=== PATIENT | female | born 1950 | race Caucasian/White ===

== ENCOUNTER 2023-08-09 09:35 | Outpatient (AMB) | payer OTHER, SELFPAY ==
--- NOTE | 2023-08-09 09:54 | A.OFFVIS_ITS ---
Intake Intake Visit Reasons: [employer]-B/L knee pain-f/u Intake Note: Ms. Del Cid presents with mild intermittent discomfort in both of her knees after undergoing bilateral total knee replacement surgeries. She denies any fevers or chills. She does have intermittent low back pain. She states that the back pain is mostly relieved when she gets a massage. She does not take any medicines for discomfort. She denies any locking or giving way. Allergies iron Allergy (Intermediate, Verified 08/09/23 09:56) Unknown Penicillins Allergy (Intermediate, Verified 08/09/23 09:56) Unknown Sulfa (Sulfonamide Antibiotics) Allergy (Intermediate, Verified 08/09/23 09:56) Itching Medication List - Last Reconciled 08/09/23 by Lucian Bhakta MD gabapentin 300 mg PO BEDTIME irbesartan-hydrochlorothiazide 300-12.5 mg 1 tab PO DAILY magnesium oxide 400 mg PO DAILY trimethoprim 100 mg PO DAILY PFSH Surgical History (Updated 08/09/23 @ 09:57 by Marian Grant MA) Hx of hysterectomy Social History (Updated 08/09/23 @ 09:57 by Marian Grant MA) Household Members: Children Housing: Apartment Alcohol intake: never Patient Tobacco Use Status: Never used Tobacco Current occupational status: disabled Physical Exam Const Other: Well-nourished well-developed very friendly female awake alert and oriented x3 in no acute distress Extrem Other: Bilateral lower extremity examination shows good capillary refill, no skin lesions noted, normal sensation light touch Bilateral knee examination shows that the surgical incisions are well healed, no erythema, full active extension and flexion to 120 degrees, her patellae track well Results Reviewed Results Reviewed: X-rays of the patient's bilateral knees taken today show total knee arthroplasties in good position with no signs of loosening, no acute bony abnormalities Assessment & Plan Assessment & Plan (1) Right knee pain: Code(s): M25.561 - Pain in right knee (2) Left knee pain: Code(s): M25.562 - Pain in left knee Plan Ms. Del Cid continues to do well after undergoing bilateral total knee replacement surgeries. She will continue with her home exercise program. She does know to take antibiotics before any dental work. She does have intermittent low back pain most likely due to degenerative disc disease. At this point the patient's low back pain is tolerable to her. She will continue getting massages as needed. She will contact me prior to her annual follow-up appointment should her symptoms worsen in any way. Feel free to call me at any time should questions regarding her orthopedic management arise. I spent 22 minutes in reviewing the patient's records and imaging studies, seeing the patient and documenting in the medical record. Orders: Orders XR knee LT 3V Today M25.562 - Pain in left knee XR knee RT 3V Today M25.561 - Pain in right knee Coding Level of Care Code Est Pt Level 2 (20944) Diagnoses Right knee pain M25.561 Left knee pain M25.562
== END 2023-08-09 10:20 | disposition home or self-care (01) ==
PROVIDERS: PCP Internal Medicine; Visit Provider Orthopaedic Surgery
DX: M25.561 Pain in right knee (principal); M25.562 Pain in left knee
CPT/HCPCS: 99212

== ENCOUNTER 2023-08-09 12:52 | Outpatient (REF) | payer OTHER, SELFPAY ==
--- NOTE | ~2023-08-09 | XR_ITS ---
EXAMINATION: XR KNEE, RIGHT XR KNEE, LEFT CLINICAL INFORMATION: Right knee pain. Left knee pain. COMPARISON: None available. TECHNIQUE: Three views of each knee. FINDINGS: RIGHT KNEE: Prosthetic components of the right total knee arthroplasty are appropriately aligned without periprosthetic fracture or abnormal lucency. Small knee joint effusion. Mild anterior soft tissue swelling. LEFT KNEE: Prosthetic components of the left total knee arthroplasty are appropriately aligned without periprosthetic fracture or abnormal lucency. Trace joint effusion. XR/XR knee LT 3V IMPRESSION: 1. Appropriate alignment of the bilateral total knee arthroplasties without evidence of complications. 2. Small right knee joint effusion and mild anterior soft tissue swelling.
--- NOTE | ~2023-08-09 | XR_ITS ---
EXAMINATION: XR KNEE, RIGHT XR KNEE, LEFT CLINICAL INFORMATION: Right knee pain. Left knee pain. COMPARISON: None available. TECHNIQUE: Three views of each knee. FINDINGS: RIGHT KNEE: Prosthetic components of the right total knee arthroplasty are appropriately aligned without periprosthetic fracture or abnormal lucency. Small knee joint effusion. Mild anterior soft tissue swelling. LEFT KNEE: Prosthetic components of the left total knee arthroplasty are appropriately aligned without periprosthetic fracture or abnormal lucency. Trace joint effusion. XR/XR knee RT 3V IMPRESSION: 1. Appropriate alignment of the bilateral total knee arthroplasties without evidence of complications. 2. Small right knee joint effusion and mild anterior soft tissue swelling.
== END 2023-08-09 12:53 | disposition home or self-care (01) ==
LOC: HO.HOSX 12:52
PROVIDERS: Visit Provider Orthopaedic Surgery
DX: M25.562 Pain in left knee (principal); M25.561 Pain in right knee; M54.50 Low back pain, unspecified; Z96.653 Presence of artificial knee joint, bilateral; Z79.899 Other long term (current) drug therapy
CPT/HCPCS: 73562

== ENCOUNTER 2024-01-16 08:34 | Outpatient (AMB) | payer SELFPAY ==
--- NOTE | 2024-01-16 08:42 | A.OFFVIS_ITS ---
Vital Signs 01/16/24 08:44 Height 5 ft 1 in Intake Visit Reasons: ov-B/L knee pain Intake Note: Shikha is a 73 year old female who presents with complaints of mild intermittent discomfort in both of her knees after undergoing bilateral total knee replacement surgeries. The patient's denies any fevers or chills. She does have intermittent low back pain. The patient states that her back pain is tolerable to her at this time. She continues with her home exercise program. Allergies iron Allergy (Intermediate, Verified 01/16/24 08:49) Unknown Penicillins Allergy (Intermediate, Verified 01/16/24 08:49) Unknown Sulfa (Sulfonamide Antibiotics) Allergy (Intermediate, Verified 01/16/24 08:49) Itching Medication List - Last Reconciled 01/16/24 by Lucian Bhakta MD gabapentin 300 mg PO BEDTIME irbesartan-hydrochlorothiazide 300-12.5 mg 1 tab PO DAILY magnesium oxide 400 mg PO DAILY trimethoprim 100 mg PO DAILY PFSH Surgical History (Updated 01/16/24 @ 08:54 by Pinky rL [facility] [address]) Hx of right knee surgery (~09/29/22) Hx of left knee surgery (~06/2022) Hx of hysterectomy Social History (Updated 08/09/23 @ 09:57 by Marian Grant [facility]) Household Members: Children Housing: Apartment Alcohol intake: never Patient Tobacco Use Status: Never used Tobacco Current occupational status: disabled Physical Exam Const Other: Well-nourished well-developed very friendly female awake alert and oriented x3 in no acute distress Extrem Other: Bilateral lower extremity examination shows good capillary refill, no skin lesions noted, normal sensation light touch Bilateral knee examination shows that the surgical incisions are well healed, no erythema, full active extension and flexion to 120 degrees, her patellae track well Assessment & Plan Assessment & Plan (1) Right knee pain: Code(s): M25.561 - Pain in right knee Category: Medical (2) Left knee pain: Code(s): M25.562 - Pain in left knee Category: Medical Plan Ms. Farfan continues to do well after undergoing bilateral total knee replacement surgeries. She will continue with her home exercise program. She does know to take antibiotics before any dental work. The patient does have chronic low back pain. At this point her back pain is tolerable to her. She does not wish to be evaluated by a back specialist. She will contact me prior to her annual follow-up appointment should any questions or concerns arise. Feel free to call me at any time should questions regarding her orthopedic management arise. I spent 21 minutes in reviewing the patient's records and imaging studies, seeing the patient and documenting in the medical record. Medications: New clindamycin HCl Take two caps (600 mg) one hour before any dental work 600 mg (2 x 300 mg) PO ONCE 10 caps 3RF Coding Level of Care Code Est Pt Level 2 (41480) Diagnoses Right knee pain M25.561 Left knee pain M25.562
== END 2024-01-16 09:12 | disposition home or self-care (01) ==
PROVIDERS: PCP Internal Medicine; Visit Provider Orthopaedic Surgery
DX: Z47.89 Encounter for other orthopedic aftercare (principal); Z96.653 Presence of artificial knee joint, bilateral
CPT/HCPCS: 99213

== ENCOUNTER → 2024-01-16 08:34 | Outpatient (BNVA) | payer OTHER, SELFPAY | PROVIDERS: PCP Internal Medicine; Visit Provider Orthopaedic Surgery ==

== ENCOUNTER 2024-05-08 12:58 | Outpatient (REF) | payer OTHER, SELFPAY ==
--- NOTE | ~2024-05-08 | XR_ITS ---
EXAMINATION: XR KNEE, RIGHT CLINICAL INFORMATION: Pain in right knee COMPARISON: 08/09/2023 TECHNIQUE: Three views of the right knee. FINDINGS: Prosthetic components of the right total knee arthroplasty with patellar button are appropriately aligned without periprosthetic fracture or abnormal lucency. Small joint effusion. XR/XR knee RT 3V IMPRESSION: Appropriate alignment of the right total knee arthroplasty without evidence of hardware complication. Electronically signed by: Ana Roldan MD 05/29/2024 02:22 PM EDT
--- NOTE | ~2024-05-08 | XR_ITS ---
EXAMINATION: XR KNEE, LEFT CLINICAL INFORMATION: Pain in left knee COMPARISON: Left knee 08/09/2023 TECHNIQUE: 3 views of the left knee. FINDINGS: Prosthetic components of the left total knee arthroplasty are appropriately aligned without periprosthetic fracture or abnormal lucency. Trace joint effusion. XR/XR knee LT 3V IMPRESSION: Appropriate alignment of the left total knee arthroplasty without evidence of complications. Electronically signed by: Ana Roldan MD 05/29/2024 02:20 PM EDT
== END 2024-05-08 12:59 | disposition home or self-care (01) ==
LOC: HO.HOSX 12:58
PROVIDERS: PCP Internal Medicine; Visit Provider Orthopaedic Surgery
DX: M25.562 Pain in left knee (principal); M25.561 Pain in right knee
CPT/HCPCS: 73562

== ENCOUNTER 2024-05-08 13:28 | Outpatient (AMB) | payer OTHER, SELFPAY ==
--- NOTE | 2024-05-08 13:32 | MHC.OFFVIS ---
Intake Visit Reasons: left shoulder pain and weakness Intake Note: Shikha is a 73 year old female who presents with complaints of progressively worsening left shoulder pain and weakness. She describes her pain as sharp in nature. The patient did injure her shoulder approximately 1 year ago while lifting a heavy object. Since that time her symptoms have gotten worse in spite of continued non operative treatments. She has tried Tylenol and anti-inflammatory medicines which gave her minimal relief. She has also done physical therapy exercises which aggravated her pain. She has failed the last 6 weeks of conservative treatment. The patient has undergone bilateral total knee replacement surgeries in the past. She reports mild intermittent discomfort in her knees. She denies any fevers or chills. Allergies iron Allergy (Intermediate, Verified 05/08/24 13:45) Unknown Penicillins Allergy (Intermediate, Verified 05/08/24 13:45) Unknown Sulfa (Sulfonamide Antibiotics) Allergy (Intermediate, Verified 05/08/24 13:45) Itching Medication List - Last Reconciled 05/08/24 by Lucian Bhakta MD clindamycin HCl 600 mg (2 x 300 mg) PO ONCE gabapentin 300 mg PO BEDTIME irbesartan-hydrochlorothiazide 300-12.5 mg 1 tab PO DAILY magnesium oxide 400 mg PO DAILY trimethoprim 100 mg PO DAILY PFSH Surgical History (Updated 01/16/24 @ 08:54 by Pinky Lr [facility]) Hx of right knee surgery (~09/29/22) Hx of left knee surgery (~06/2022) Hx of hysterectomy Social History (Updated 08/09/23 @ 09:57 by Marian Grant CMA) Household Members: Children Housing: Apartment Alcohol intake: never Patient Tobacco Use Status: Never used Tobacco Current occupational status: disabled Physical Exam Const Other: Well-nourished well-developed very friendly female awake alert and oriented x3 in no acute distress Extrem Other: Bilateral upper extremity examination shows good capillary refill, no skin lesions noted, normal sensation light touch Left shoulder examination shows slightly decreased range of motion when compared to her right shoulder, 4+ out of 5 strength with supraspinatus testing, positive impingement signs, tenderness over her acromioclavicular joint, no instability Assessment & Plan Assessment & Plan (1) Left shoulder pain: Code(s): M25.512 - Pain in left shoulder Category: Medical Plan Ms. Farfan presents with progressively worsening left shoulder pain and weakness due to impingement syndrome and possible rotator cuff tearing. Thus, I will send the patient for an MRI of her left shoulder for further evaluation. I will see her back once the MRI is completed to discuss the findings and treatment options. She will continue with her home stretching program in the meantime to prevent stiffness. Feel free to call me at any time should questions regarding her orthopedic management arise. I spent 22 minutes in reviewing the patient's records and imaging studies, seeing the patient and documenting in the medical record. Orders: Orders XR knee LT 3V 05/08/24 M25.562 - Pain in left knee XR knee RT 3V 05/08/24 M25.561 - Pain in right knee XR knee LT 3V 05/08/24 M25.562 - Pain in left knee XR knee RT 3V 05/08/24 M25.561 - Pain in right knee MR shoulder LT wo con 05/08/24 M25.512 - Pain in left shoulder Medications: New diclofenac sodium ER 100 mg PO DAILY PRN 30 tabs 2RF pain Coding Level of Care Code Est Pt Level 3 (46967) Complex EM visit Add On G2211 Diagnoses Left shoulder pain M25.512
== END 2024-05-08 13:58 | disposition home or self-care (01) ==
PROVIDERS: PCP Internal Medicine; Visit Provider Orthopaedic Surgery
DX: M75.42 Impingement syndrome of left shoulder (principal)
CPT/HCPCS: 99213

== ENCOUNTER 2024-06-24 12:57 | Outpatient (AMB) | payer OTHER, SELFPAY ==
--- NOTE | 2024-06-24 13:09 | A.OFFVIS_ITS ---
Vital Signs 06/24/24 13:14 Height 5 ft 1 in Weight 182 lb BMI 34.4 Intake Visit Reasons: Left shoulder pain and weakness Intake Note: Shikha is a 73 year old female who presents for a follow up of her progressively worsening left shoulder pain and weakness. The patient states that her left shoulder pain and weakness have gotten worse over the last year. I did see her in the office approximately 6 weeks ago. Since that time her symptoms have gotten worse. She reports weakness when lifting her right hand above shoulder height. She has had cortisone injections given into her right shoulder by Dr. Meza. She got minimal relief from those injections. She has also done physical therapy and a home exercise program which aggravated her pain. She has tried Tylenol and anti-inflammatory medicines which gave her minimal relief. The patient has failed the last 6 weeks of conservative treatment. She also reports intermittent low back pain which radiates into the posterior aspect of her right leg. Allergies iron Allergy (Intermediate, Verified 06/24/24 13:14) Unknown Penicillins Allergy (Intermediate, Verified 06/24/24 13:14) Unknown Sulfa (Sulfonamide Antibiotics) Allergy (Intermediate, Verified 06/24/24 13:14) Itching Medication List - Last Reconciled 06/24/24 by Lucian Bhakta MD clindamycin HCl 600 mg (2 x 300 mg) PO ONCE gabapentin 300 mg PO BEDTIME irbesartan-hydrochlorothiazide 300-12.5 mg 1 tab PO DAILY magnesium oxide 400 mg PO DAILY trimethoprim 100 mg PO DAILY PFSH Surgical History (Updated 01/16/24 @ 08:54 by Pinky Lr CMA) Hx of right knee surgery (~09/29/22) Hx of left knee surgery (~06/2022) Hx of hysterectomy Social History (Updated 08/09/23 @ 09:57 by Marian Grant CMA) Household Members: Children Housing: Apartment Alcohol intake: never Patient Tobacco Use Status: Never used Tobacco Current occupational status: disabled Physical Exam Vital Signs: BMI result Body Mass Index 34.4 Const Other: Well-nourished well-developed very friendly female awake alert and oriented x3 in no acute distress Extrem Other: Bilateral upper extremity examination shows good capillary refill, no skin lesions noted, normal sensation light touch Left shoulder examination shows decreased active range of motion but full passive range of motion when compared to her right shoulder, 4/5 strength with supraspinatus testing, positive impingement signs, tenderness over her acromioclavicular joint, no instability Results Reviewed Results Reviewed: X-rays of the patient's left shoulder taken previously show severe acromioclavicular joint narrowing, a type 2 acromion, no acute bony abnormalities Assessment & Plan Assessment & Plan (1) Rotator cuff insufficiency of left shoulder: Code(s): M25.312 - Other instability, left shoulder Category: Medical Plan Ms. Farfan presents with progressively worsening left shoulder pain and weakness due to impingement syndrome and most likely a full-thickness rotator cuff tear. The patient's symptoms have gotten worse since her previous visit with me. She has failed the last 6 weeks of conservative treatment. Thus, I will send her for an MRI of her left shoulder for further evaluation. If she does have a full-thickness rotator cuff tear I will recommend surgical repair to optimize her future functional level. She also has low back pain which radiates into her right leg possibly due to lumbar stenosis or a disc herniation. Thus, I will arrange for her to have an evaluation in our pain management department here at [facility]. The patient will contact me prior to that appointment should her symptoms worsen in any way. I will see her back after her left shoulder MRI is completed to discuss the findings and treatment options. Feel free to call me at any time should questions regarding her orthopedic management arise. I spent 20 minutes in reviewing the patient's records and imaging studies, seeing the patient and documenting in the medical record. Orders: Orders MR shoulder LT wo con Today M25.312 - Other instability, left shoulder Referrals Pain Management Referral M54.50 - Low back pain, unspecified Coding Level of Care Code Est Pt Level 3 (30248) Complex EM visit Add On G2211 Diagnoses Rotator cuff insufficiency of left shoulder M25.312
[2024-06-24 13:14] VITALS: BMI 34.4
== END 2024-06-24 13:29 | disposition home or self-care (01) ==
LOC: HO.HOS 12:57
PROVIDERS: PCP Internal Medicine; Visit Provider Orthopaedic Surgery
DX: M25.312 Other instability, left shoulder (principal)
CPT/HCPCS: 99213

== ENCOUNTER → 2024-06-24 12:57 | Outpatient (BNVA) | payer OTHER, SELFPAY | PROVIDERS: PCP Internal Medicine; Visit Provider Orthopaedic Surgery ==

== ENCOUNTER 2024-07-16 13:16 | Outpatient (AMB) | payer OTHER, SELFPAY ==
--- NOTE | 2024-07-16 13:23 | MHC.OFFVIS ---
Vital Signs 07/16/24 13:24 Height 5 ft 1 in Weight 184 lb BMI 34.8 BP 137/66 Blood Pressure Location Lt brachial Position Sitting Respiration 16 Pulse 89 Pulse Source Pulse Oximeter Pulse Oximetry (%) 93 Oxygen Delivery Method Room Air Intake Visit Reasons: Low back pain Allergies iron Allergy (Intermediate, Verified 07/16/24 13:26) Unknown Penicillins Allergy (Intermediate, Verified 07/16/24 13:26) Unknown Sulfa (Sulfonamide Antibiotics) Allergy (Intermediate, Verified 07/16/24 13:26) Itching Medication List - Last Reconciled 07/16/24 by Amaris Duvall LPN clindamycin HCl 600 mg (2 x 300 mg) PO ONCE gabapentin 300 mg PO BEDTIME levocetirizine 5 mg PO DAILY losartan 50 mg PO DAILY magnesium oxide 400 mg PO DAILY meloxicam 7.5 mg PO DAILY trimethoprim 100 mg PO DAILY HPI Comments Details: Shikha is very pleasant 73 years old female who presents in my office with complains on axial back pain with minimal radiation to the right left hip and left thigh. She reports that this problem started many years ago. She reports that sitting hurts the most, itching back backwards aggravate the pain as well. Walking improves the pain. She can sleep normally, she can do activities of daily living, she can not take care of herself, she can function normally. She is unemployed individual, she never worked. She reports weather changes and called aggravate her pain. She reports pain is very severe during the daytime. In terms of tissue damage he describes her pain as stabbing and lancinating. She tried to take gabapentin and meloxicam for her pain. She reports that it does not help. She never had any images of her lumbar spine. She had massage therapy which helped her initially very good but later on faded ineffectiveness. She never had physical therapy or chiropractic manipulations. She never had any injections. Her past medical history significant for hypertension COPD and arthritis, she had 2 surgeries on her knees total knee replacement in 07/16/2022 and 10/16/2022. Long time ago 1987 she had hysterectomy. She denies smoking cigarettes drinking alcohol she drinks soda infrequently and she denies recreational drugs. [facility] Surgical History (Updated 01/16/24 @ 08:54 by Pinky Lr CMA) Hx of right knee surgery (~02/03/23) Hx of left knee surgery (~06/2022) Hx of hysterectomy Social History (Updated 08/09/23 @ 09:57 by Marian Grant [facility]) Household Members: Children Housing: Apartment Alcohol intake: never Patient Tobacco Use Status: Never used Tobacco Current occupational status: disabled Review of Systems ENT Reports Normal hearing present Card Reports no additional complaints Resp Reports no additional complaints GI Reports no additional complaints Reports no additional complaints Musc Reports as per HPI Neuro Reports no additional complaints, Reports Normal hearing present, Denies Abnormal speech present, Denies confusion and Denies Sensory deficit (Neuro) Psych Denies confusion Endo Reports no additional complaints Physical Exam Vital Signs: Last Vital Signs Pulse 89 07/16/24 13:24 Resp 16 07/16/24 13:24 BP 137/66 07/16/24 13:24 Pulse Ox 93 07/16/24 13:24 Oxygen Delivery Method Room Air 07/16/24 13:24 BMI result Body Mass Index 34.8 Const General: no acute distress; No confusion Orientation/consciousness: patient oriented x3 and No confusion Eyes General: appearance normal, both eyes and all related structures Pupils: Equal, round and reactive pupils present EOM: EOMs intact bilaterally Neck Neck: Yes full ROM Chest Chest palpation & inspection: normal inspection of the chest Resp Effort & Inspection: normal respiratory effort, able to speak in complete sentences, normal respiratory pattern, no audible wheezes and no cough Cardio Jugular venous distension: no JVD GI Inspection: Yes normal to inspection Back/Spine/Pelvis Other: Able to stand on bilateral tiptoes in bilateral heels without any difficulty. Elbow to flex herself forward and backwards reports backwards aggravate her pain. Prolonged sitting aggravates her pain. Valsalva maneuver is negative for pain increase. Finesse test is negative bilaterally. SLR is negative bilaterally. Loading test is positive more on the left and less on the right. Neuro General: patient oriented x3, gait normal and No confusion Cranial nerves: Yes CN's II-XII intact bilaterally, Yes Equal, round and reactive pupils present, Yes Normal hearing present and Yes Ability to bilaterally elevate shoulders present Speech: No Abnormal speech present Gait exam (Neuro): Normal gait present Motor exam (neuro): 5/5 motor strength present throughout Sensory Exam: No Sensory deficit (Neuro) Extrem General: No pedal edema Psych Speech and movement: Normal speech and movement present Affect: normal affect Attitude: cooperative Thought process: Normal thought process present Thought content: Normal thought content present Insight: Good insight present (Psych) Judgement: Good judgement present (Psych) Assessment & Plan Assessment & Plan (1) Spondylosis of lumbar region without myelopathy or radiculopathy: Code(s): M47.816 - Spondylosis without myelopathy or radiculopathy, lumbar region Category: Medical Plan This patient never had physical therapy for her lumbar spine she never had any images of the lumbar spine. I will schedule her for x-ray of the lumbar spine, I will send her for physical therapy. It will be open order for physical therapy to attend the physical therapy close to her home. Role of home exercise program was explained to the patient. She can continue her meloxicam and gabapentin to help her pain. She reports that she takes with good effect OTC Salonpas lidocaine patches. She will continue those patches as well. I will see her in 5 weeks from now. If physical therapy will not be working we will schedule her for diagnostic medial branch block L3, L4, dorsal ramus L5 bilateral. Orders: Orders PT Evaluation and Treatment Today M47.816 - Spondylosis without myelopathy or radiculopathy, lumbar region XR lumbar spine 4V min Today M47.816 - Spondylosis without myelopathy or radiculopathy, lumbar region Coding Level of Care Code New Pt Level 3 (73240) Diagnoses Spondylosis of lumbar region without myelopathy or radiculopathy M47.816
[2024-07-16 13:24] VITALS: BP 137/66; PULSE 89; RESP 16; O2SAT 93; BMI 34.8
== END 2024-07-16 13:50 | disposition home or self-care (01) ==
PROVIDERS: PCP Internal Medicine; Visit Provider Anesthesiology
DX: M47.816 Spondylosis without myelopathy or radiculopathy, lumbar region (principal)
CPT/HCPCS: 99203

== ENCOUNTER 2024-07-16 13:16 | Outpatient (REF) | payer OTHER, SELFPAY ==
--- NOTE | ~2024-07-16 | XR_ITS ---
EXAMINATION: XR LUMBAR SPINE CLINICAL INFORMATION: Spondylosis. COMPARISON: None available. TECHNIQUE: AP, lateral, bilateral oblique, and coned-down views of the lumbar spine. FINDINGS: Normal vertebral body alignment. The lumbar lordosis is maintained. No acute fracture or subluxation. No loss of vertebral body height. Multilevel loss of intervertebral disc height with degenerative endplate changes. Lower lumbar spine facet arthropathy. No concerning lytic or blastic osseous lesion. XR/XR lumbar spine 4V min IMPRESSION: Moderate multilevel degenerative disc disease with lower lumbar spine facet arthropathy. Electronically signed by: Willy Willett MD 07/16/2024 04:05 PM DINO
== END 2024-07-16 13:17 | disposition home or self-care (01) ==
LOC: HO.XRAY 13:16
PROVIDERS: PCP Internal Medicine; Visit Provider Anesthesiology
DX: M47.816 Spondylosis without myelopathy or radiculopathy, lumbar region (principal)
CPT/HCPCS: 72110

== ENCOUNTER 2024-07-23 11:52 | Outpatient (REF) | payer OTHER, SELFPAY ==
[2024-07-23 12:12] LABS: MANUAL DIFF FLAG NO
[2024-07-23 12:20] LABS: Basophils Percent Auto 0.5 % (0-2); Eosinophils Absolute Auto 0.1 X10*3/uL (0.0-0.4); Eosinophils Percent Auto 1.4 % (0-4); Hematocrit 40.9 % (37.0-47.0); Hemoglobin 13.9 g/dl (12.0-16.0); Imm Gran Abs Auto 0.02 X10*3/uL (0.00-0.03); Imm Gran Pct Auto 0.3 % (0.0-0.4); Lymphocytes Absolute Auto 2.6 X10*3/uL (1.2-4.9); Lymphocytes Percent Auto 34.2 % (20-40); Mean Corpuscular Hemoglobin 32.4 pg (27.0-33.0); Mean Corpuscular Volume 95.3 fL (80.0-98.0); Mean Platelet Volume 10.1 fL (9.4-12.3); Monocytes Percent Auto 12.9 % (2-11); Neutrophils Absolute Auto 3.9 x10*3/uL (2.0-8.3); Neutrophils Percent Auto 50.7 % (45-73); Platelet Count 332 X10*3/uL (160-400); Red Blood Count 4.29 X10*6/uL (4.20-5.50); White Blood Count 7.7 X10*3/uL (4.8-10.8)
[2024-07-23 12:57] LABS: Anion Gap 16 (12-20); Blood Urea Nitrogen 12 mg/dL (9-16); Carbon Dioxide 28 mmol/L (22-29); Chloride 102 mmol/L (96-108); Estimated Glomerular Filt Rate > 60; Glucose Random 97 mg/dL (60-115); Potassium 4.3 mmol/L (3.3-5.1); Sodium 142 mmol/L (135-145)
[2024-07-23 13:07] LABS: TSH reflex Free T4 1.34 uIU/mL (0.32-4.0)
[2024-07-23 13:41] LABS: Vitamin B12 760 pg/mL (200-900)
== END 2024-07-23 11:53 | disposition home or self-care (01) ==
LOC: HO.LAB 11:52
PROVIDERS: PCP Internal Medicine; Visit Provider Psychiatry & Neurology Neurology
DX: G31.84 Mild cognitive impairment of uncertain or unknown etiology (principal)
CPT/HCPCS: 36415; 80048; 82607; 82746; 84443; 85025

== ENCOUNTER → 2024-08-31 08:34 | Outpatient (BNV) | payer OTHER, SELFPAY | PROVIDERS: PCP Internal Medicine; Visit Provider General Practice | DX: M25.312 Other instability, left shoulder (principal) | CPT/HCPCS: 73221 ==

== ENCOUNTER 2024-08-31 08:42 | Outpatient (REF) | payer OTHER, SELFPAY ==
--- NOTE | ~2024-08-31 | MR_ITS ---
CLINICAL HISTORY: M25.312 - Other instability, left shoulder MR left shoulder without gadolinium Comparison: None Findings: Osseous alignment is satisfactory. No fracture identified. Severe osteoarthritic changes are present within the glenohumeral joint with joint space narrowing and subchondral cyst formation. Joint fluid volume is satisfactory. There is slightly increased fluid in the subacromial subdeltoid bursa. Full-thickness partial width tear of the anterior distal supraspinatus is present with atrophic change in the anterior supraspinatus muscle belly. Infraspinatus and teres minor are grossly within normal limits. Tendinotic thickening of subscapularis is present. The visualized portions of the long head of biceps are unremarkable Labrum is not well evaluated on this exam. Moderate osteoarthritic changes are present. Regional soft tissues are grossly within normal limits. IMPRESSION: 1. Severe glenohumeral osteoarthritic change with joint space narrowing and subchondral sclerosis. 2. Chronic appearing full-thickness partial width tear of the supraspinatus tendon. This document has been electronically signed by: Michael Tavera MD, PHD on 09/02/2024 05:27:33
--- OUTSIDE RECORDS SUMMARY | 2024-08-31 08:44 | XMS_ITS ---
Author Name [facility] Organization Unknown Results Test Name/Text Value Interpretation Date Range Source Clarity Ur Refract.auto CLEAR Normal [facility] Prot Ur Ql Strip.auto NEGATIVE Normal - [facility] Glucose Ur Ql Strip.auto NEGATIVE Normal - [facility] Nitrite Ur Ql Strip.auto NEGATIVE Normal - [facility] Hgb Ur Ql Strip.auto MODERATE Abnormal - [facility] Ketones Ur Ql Strip.auto NEGATIVE Normal - [facility] Leukocyte esterase Ur Ql Strip.auto NEGATIVE Normal - [facility] Sp Gr Ur Strip.auto 1.02 Normal 1.005 - 1.03 [facility] pH Ur Strip.auto 6 Normal 4.5 - 8 [facility] SQUAMOUS NO./AREA URNS LPF 18/LPF Above high normal [id number] 0 - 5 [facility] RBC number/area UrnS Auto 16/HPF Above high normal 0 - 3 [facility] WBC number/area UrnS Auto 2/HPF Normal 0 - 5 [facility] SPECIMEN SOURCE XXX URINE CLEAN CATCH Normal [id number] [facility] Troponin I SerPl HS-mCnc 3ng/L Normal 0 - 14 [facility] CREAT SERPL MCNC 0.9mg/dL Normal 0.5 - 1 [facility] CALCIUM SERPL MCNC 10.1mg/dL Normal [id number] 8.4 - 10 .2 [facility] SODIUM SERPL SCNC 134mmol/L Below low normal 13 5 - 145 [facility] ANION GAP SERPL SCNC 8mmol/L Normal 5 - 14 [facility] Glomerular filtration rate/1.73 sq M. predicted 68 Normal 60 - [facility] HCO3 SER SCNC 30mmol/L Normal 24 - 32 [facility] GLUCOSE SERPL MCNC 94mg/dL Normal [id number] 70 - 199 [facility] BUN SERPL MCNC 16mg/dL Normal [id number] 7 - 17 [facility] CHLORIDE SERPL SCNC 96mmol/L Below low normal [id number] 98 - 107 [facility] POTASSIUM SERPL SCNC 3.6mmol/L Normal [id number] 3.5 - 5.1 [facility] PLATELET NO. BLD AUTO 412K/uL Normal [id number] 150 - 450 [facility] RBC NO. BLD AUTO 4.33M/uL Normal [id number] 4.2 - 5.4 [facility] NUCLEATED RBC 0% Normal [id number] 0 - 1 [facility] LYMPHOCYTES NO. BLD AUTO 2K/uL Normal [id number] 1 - 3.2 [facility] EOSINOPHIL NO. BLD AUTO 0.1K/uL Normal [id number] 0 - 0.5 [facility] MCH RBC QN AUTO 32.3pg Normal [id number] 25 - 33 [facility] MCHC RBC AUTO MCNC 33.9g/dL Normal [id number] 32 - 36 [facility] MONOCYTES NFR BLD AUTO 11.7% Normal [id number] 2 - 12 [facility] IMMATURE GRANULOCYTE, ABSOLUTE 0.02k/uL Normal [id number] - 0.1 [facility] LYMPHOCYTES NFR BLD AUTO 26% Normal [id number] 20 - 48 [facility] EOSINOPHIL NFR BLD AUTO 0.6% Normal [id number] 0 - 6 [facility] HGB BLD MCNC 14g/dL Normal [id number] 12.5 - 16 [facility] NEUTROPHILS NO. BLD AUTO 4.8K/uL Normal [id number] 1.8 - 7.8 [facility] WBC NO. BLD AUTO 7.9K/uL Normal [id number] 4 - 10.5 [facility] BASOPHILS NFR BLD AUTO 0.3% Normal [id number] 0 - 2 [facility] MONOCYTES NO. BLD AUTO 0.9K/uL Above high normal [id number] 0 - 0.8 [facility] MCV RBC AUTO 95.4fL Normal [id number] 78 - 100 [facility] NEUTROPHILS NFR BLD AUTO 61.1% Normal [id number] 44 - 74 [facility] IMMATURE GRANULOCYTE, PERCENT 0.3% Normal [id number] 0 - 1 [facility] BASOPHILS IN BLOOD BY AUTOMATED COUNT 0K/uL Normal 0 - 0.2 [facility] PMV BLD AUTO 9.7fL Normal [id number] 7.4 - 11.4 [facility] RDW RBC AUTO RTO 12.3% Normal [id number] 12.1 - 16. 2 [facility] HCT VFR BLD AUTO 41.3% Normal [id number] 37 - 47 [facility] History of Medication Use Medication Directions Dispensed Refills Start Date End Date Stat meloxicam (MOBIC) 15 MG tablet Take 15 mg by mouth daily. 05/16/2024 active levocetirizine (XYZAL) 2.5 MG/5ML solution Take 2.5 mg by mouth every evening. 05/16/2024 active loratadine (CLARITIN) 10 MG tablet Take 10 mg by mouth Once before discharge. 05/21/2022 active proMETHAZINE-dextromet horphan (proMETHAZINE-DM) 6.25-15 MG/5ML syrup Take 5 mL by mouth 4 times daily (every 6 hours) as needed for cough. 04/27/2023 active irbesartan 300 mg-hydrochlorothiazide 12.5 mg tablet TAKE 1 TABLET BY MOUTH EVERY DAY 03/18/2023 active gabapentin (NEURONTIN) 300 MG capsule Take 300 mg by mouth 3 (three) times a day. 05/21/2022 active doxycycline (VIBRAMYCIN) 100 MG capsule Take 1 capsule (100 mg total) by mouth 2 (two) times a day. 04/27/2023 active clindamycin HCl 300 mg capsule TAKE 2 CAPSULES BY MOUTH 1 HOUR BEFORE DENTAL APPOINTMENT 03/18/2023 active azithromycin 250 mg tablet 03/18/2023 active albuterol (VOSPIRE ER) 8 MG 12 hr tablet Take 8 mg by mouth twice daily (every 12 hours). 10/01/2023 active aspirin 81 mg tablet,delayed release 03/18/2023 ac tive senna-docusate (SENNA-S) 8.6-50 MG Take 1 tablet by mouth 2 (two) times a day. 09/25/2022 active gabapentin 300 mg capsule TAKE 1 CAPSULE BY MOUTH EVERY NIGHT 03/18/2023 active magnesium oxide 400 (240 Mg) MG Tab tablet Take 400 mg by mouth daily. Take 2 hours apart from other medications; take with food 10/01/2023 active albuterol (VOSPIRE ER) 8 MG 12 hr tablet Take 8 mg by mouth twice daily (every 12 hours). 10/01/2023 active pantoprazole 40 mg tablet,delayed release 03/18/2023 ac tive azithromycin (ZITHROMAX) 250 MG tablet Take 2 tabs PO on day one and one tabs on days 2-5 #6 05/21/2022 active Stimulant Laxative Plus 8.6 mg-50 mg tablet 03/18/2023 active acetaminophen 500 mg tablet TAKE 2 TABLETS BY MOUTH EVERY 8 HOURS 03/18/2023 active oxycodone 5 mg tablet TAKE 1 TABLET BY MOUTH EVERY 12 HOURS NEEDED FOR PAIN 03/18/2023 active fluticasone-vilanterol (BREO ELLIPTA) 100-25 MCG/ACT inhaler Inhale 1 puff daily. 10/01/2023 active trimethoprim (PRIMSOL) 100 MG tablet Take 100 mg by mouth 2 (two) times a day. 10/01/2023 active loratadine 10 mg tablet TAKE 1 TABLET BY MOUTH DAILY NEEDED 03/18/2023 active irbesartan-hydrochloro thiazide (AVALIDE) 300-12.5 MG per tablet Take 1 tablet by mouth daily. 05/21/2022 active trimethoprim 100 mg tablet TAKE 1/4 TABLET BY MOUTH FOUR TIMES DAILY 03/18/2023 active methocarbamol 750 mg tablet TAKE 1 TABLET BY MOUTH EVERY 8 HOURS NEEDED FOR SPASMS 03/18/2023 active Problems Problem Status Onset Date Problem Type Date of Resolution Source Pain of right knee joint active 2022-11-28 ProblemAct [facility] Encounter for screening laboratory testing for severe acute respiratory syndrome coronavirus 2 (SARS-CoV-2) [facility] Acute bacterial bronchitis active [facility]
== END 2024-08-31 08:43 | disposition home or self-care (01) ==
LOC: HO.MRI 08:42
PROVIDERS: PCP Internal Medicine; Visit Provider Orthopaedic Surgery
DX: M25.312 Other instability, left shoulder (principal)
CPT/HCPCS: 73221

== ENCOUNTER 2024-09-03 12:58 | Outpatient (AMB) | payer OTHER, SELFPAY ==
--- OUTSIDE RECORDS SUMMARY | 2024-09-03 13:02 | XMS_ITS | Data Portability ---
Author Organization [place] [facility] Nettie Braxton [place] Address [address] [place] [address] Care Team Providers Care Boatswain Mate Name Role Phone NADIYA OLIVO Primary Care Provider [phone] Assessment Encounter Date Assessment Date Assessment LastModified by Organization Details LastModified Time 11/28/2022 11/28/2022 Ms. Farfan continues to do very well after undergoing right total knee replacement surgery on September 28, 2022. She will continue with her home exercise program. She does know to take antibiotics before any dental work. She will contact me prior to her follow-up appointment in 3 months should any questions or concerns arise. juliet Not available 11/28/2022 14:37:39 03/16/2023 03/16/2023 HPI : Patient is here for follow-up for stage bilateral total knee replacements, most recent one was right total knee in September 2022.? ? overall she is recovering well. Her pain is much improved compared to before surgery. She is walking largely without an assistive device. She has good function. She has good range of motion. Her strength is improving. Overall, patient reports good pain relief in the knee and satisfactory evangelical of function in terms of activities of daily living. She does have some mild aching laterally on the left side and some quadriceps pain on the right side. Physical Exam : Patient is well nourished, well-developed, in no acute distress, with appropriate mood and affect. The patient is oriented to time, place, and person. Respirations are even and unlabored. There is no inguinal adenopathy. The right limb is well-perfused, with well healed skin incision. The patient demonstrates good knee motion, stability, and strength. The knee moves from 0-125 degrees. The alignment of the knee is neutral. Muscle strength is normal. Pedal pulses are palpabl The affected limb is well-perfused, with well healed skin incision. The patient demonstrates good knee motion, stability, and strength. The knee moves from 0-130 degrees. The alignment of the knee is neutral. Muscle strength is normal. Pedal pulses are palpable. Hip examination, including flexion and internal rotation, was negative in that groin pain was not produced. Assessment/Plan : This patient is functioning well after staged bilateral total knee arthroplasty. Continue knee conditioning exercises. Qtma-[id number] r medications as needed. Ultimate failure may occur due to mechanical wear, loosening or breakage. Follow-up is recommended to assess for the possibility of failure. Plan for follow-up in September 2023 with repeat x-rays of the bilateral knees at that time. Not available 03/16/2023 08:46:42 Plan of Treatment Reminders Order Date Submit Date Provider Last Modified By Organization Details Last Modified Time Details Appointments None record ed. Lab None record ed. Referral None record ed. Procedures None record ed. Surgeries None record ed. Imaging XR, knee, 1 or 2 view 023 03/16/20 23 [email or web address] [facility], [address], [place], [address], 3 08:47:14 XR, knee, 1 or 2 view 023 03/16/20 23 [email or web address] [facility], [address], [place], [address], 3 08:47:14 Medication Orders None record ed. Patient TargetsNo targets recorded. Patient Instructions Encounter Date Encounter Id Patient Instructions Last Modified By Organization Details Last Modified Time 03/16/2023 AP, lateral, and patellar radiographs of the left knee taken today demonstrate satisfactory position and alignment of components following left total knee replacement. AP, lateral, and patellar radiographs of the right knee taken today demonstrate satisfactory position and alignment of components following right total knee replacement. Not available 03/16/2023 08:47:37 Reason for Referral None Reported. Problems Name Problem SNOMED Code Status Onset Date Resolution Date Notes Provider Name and Address Organization Details Recorded Time Pain of right knee joint [id number] Active 2022 Lucian Bhakta MD [address] [facility] [address], [place], [address] [facility] 14:34:43 Problem Notes None recorded. Procedures Surgical History Date Name Laterality Status Provider Name and Address Organization Details Recorded Time Total knee arthroplasty completed Daylin Quinn [place] [facility] 11/28/2022 14:24:50 Imaging Results None recorded. Procedure Notes None recorded. Medical Equipment None Reported. Allergies No known drug allergies Medications Name Sig Start Date Stop Date Status Note LastModified by Organization Details LastModified Time clindamycin HCl 300 mg capsule TAKE 2 CAPSULES BY MOUTH 1 HOUR BEFORE DENTAL APPOINTMENT active Not Available Not Available Not Available azithromycin 250 mg tablet active Not Available Not Available Not Available trimethoprim 100 mg tablet TAKE 1/4 TABLET BY MOUTH FOUR TIMES DAILY active Not Available Not Available Not Available aspirin 81 mg tablet,delay ed release active Not Available Not Available N ot Available acetaminophe n 500 mg tablet TAKE 2 TABLETS BY MOUTH EVERY 8 HOURS active Not Available Not Available No t Available methocarbamo l 750 mg tablet TAKE 1 TABLET BY MOUTH EVERY 8 HOURS NEEDED FOR SPASMS active Not Available Not Available No t Available pantoprazole 40 mg tablet,delay ed release active Not Available Not Available N ot Available irbesartan 300 mg-hydrochlo rothiazide 12.5 mg tablet TAKE 1 TABLET BY MOUTH EVERY DAY active Not Available Not Available No t Available gabapentin 300 mg capsule TAKE 1 CAPSULE BY MOUTH EVERY NIGHT active Not Available Not Available No t Available loratadine 10 mg tablet TAKE 1 TABLET BY MOUTH DAILY NEEDED active Not Available Not Available No t Available oxycodone 5 mg tablet TAKE 1 TABLET BY MOUTH EVERY 12 HOURS NEEDED FOR PAIN active Not Available Not Available No t Available Stimulant Laxative Plus 8.6 mg-50 mg tablet active Not Available Not Available Not Available Vitals Date Recorded Body height Body mass index (BMI) Body weight Provider Name and Address Organization Details Last Updated DateTime 03/16/2023 157.48 cm 32 kg/m2 96692.66 g Olena Hoffman [place] [facility] 03/16/2023 08:35:34 Date Recorded Body height Body mass index (BMI) Body weight Provider Name and Address Organization Details Last Updated DateTime 11/28/2022 157.48 cm 32 kg/m2 [address]243.[address] [place] [facility] 11/28/2022 14:24:20 Social History None recorded. Functional Status None recorded. Mental Status None recorded. Family History Relationship Description Onset Age of this Age Resolved Age Notes LastModified by Organization Details LastModified Time Father No current problems or disability [email or web address] Not available 11/28 14:24:37 Mother No current problems or disability [email or web address] Not available 11/28 14:24:37 Medical History Condition Response Hypertension Y Gynecological HistoryNo gynecological history recorded. Obstetrics History GPAL:G 0 P 0 0 0 0 Past Encounters Encounter ID Performer Location Encounter Start Date Encounter Closed Date Diagnosis/Indication Diagnosis SNOMED-CT Code Diagnosis ICD10 Code Diagnosis Note [id number] MD DICK Manuel [facility] [address] [facility] [address] [place] [address] 11/28/2022 14:16:32 11/28/2022 14:34:58 Pain of right knee joint [id number] 06726 M25.561 [id number] MD DICK Sloan [facility] [address] [facility] [address] [place] [address] 03/16/2023 08:19:46 03/16/2023 08:47:14 History of right total knee replacement 4551164105 039858 Z96.651 History of left total knee replacement 8255716216 808421 Z96.652 Aftercare 328650411 Z47. 1 Health Concerns Section Related Observation LastModified by Organization Detai ls LastModified Time None Recorded Concern Status LastModified by Organization Details LastModified Time None Recorded Advance Directives Directive None Recorded Payers Encounter Date Sequence Insurance Name Policy Number Policy Ball Covered Member ID Ball Member ID Guarantor Name 11/28/2022 1 [facility] [id number] 2 Shikha Spicers [id number] Shikha Farfan 03/16/2023 1 [facility] [id number] 2 Shikha Vincent Hodgkins [id number] Shikha Farfan Notes Date Note Type Note Provider Name and Address Organization Details Recorded Time 11/28/2022 text/html The patient presents with complaints of mild intermittent discomfort in her right knee after undergoing right total knee replacement surgery on September 28, 2022. She denies any fevers or chills. She continues with her home exercise program. Lucian Bhakta MD [address] [place] [address], [address], [place] [facility] 11/28/2022 14:37:48 OBGyn Episode No OBEpisode recorded.
[2024-09-03 13:05] VITALS: BMI 34.8
--- NOTE | 2024-09-03 13:05 | MHC.OFFVIS ---
Vital Signs 09/03/24 13:05 Height 5 ft 1 in Weight 184 lb BMI 34.8 Intake Visit Reasons: OV- Left shoulder MRI review Intake Note: Shikha is a 73 year old female who presents with complaints of progressively worsening left shoulder pain. She describes her pain as sharp in nature. She has done physical therapy exercises which aggravated her pain. She has also tried Tylenol and anti-inflammatory medicines which gave her minimal relief. She wishes to hold off on surgery for as long as possible. Allergies iron Allergy (Intermediate, Verified 09/03/24 13:06) Unknown Penicillins Allergy (Intermediate, Verified 09/03/24 13:06) Unknown Sulfa (Sulfonamide Antibiotics) Allergy (Intermediate, Verified 09/03/24 13:06) Itching Medication List - Last Reconciled 09/03/24 by Lucian Bhakta MD gabapentin 300 mg PO BEDTIME levocetirizine 5 mg PO DAILY losartan 50 mg PO DAILY magnesium oxide 400 mg PO DAILY meloxicam 7.5 mg PO DAILY trimethoprim 100 mg PO DAILY PFSH Surgical History (Updated 01/16/24 @ 08:54 by Pinky Lr CMA) Hx of right knee surgery (~09/29/22) Hx of left knee surgery (~06/2022) Hx of hysterectomy Social History (Updated 08/09/23 @ 09:57 by Marian Grant CMA) Household Members: Children Housing: Apartment Alcohol intake: never Patient Tobacco Use Status: Never used Tobacco Current occupational status: disabled Physical Exam Vital Signs: BMI result Body Mass Index 34.8 Const Other: Well-nourished well-developed very friendly female awake alert and oriented x3 in no acute distress Extrem Other: Bilateral upper extremity examination shows good capillary refill, no skin lesions noted, normal sensation light touch left shoulder examination shows slightly decreased range of motion when compared to her right shoulder, 4+ out of 5 strength with supraspinatus testing, positive impingement signs, mild crepitus with range of motion, no instability Office Procedures AMB Joint Injection/Aspiration Joint Injection/Aspiration Primary Site: left shoulder Prep: site was prepped using aseptic technique Injected: 40 mg of, DepoMedrol and 1% plain lidocaine Procedure: The patient tolerated the procedure well Coding 89383 - Large joint Procedure code (CPT) selection complete Results Reviewed Results Reviewed: MRI of the patient's left shoulder shows moderate to severe glenohumeral joint degenerative changes, a type 2 acromion, no acute bony abnormalities Assessment & Plan Assessment & Plan (1) Arthritis of left shoulder region: Code(s): M19.012 - Primary osteoarthritis, left shoulder Category: Medical Plan Ms. Farfan Presents with left shoulder pain and stiffness due to glenohumeral joint arthritis. The risks and benefits of a left shoulder cortisone injection were discussed at length with the patient. The patient wished to proceed. She tolerated the injection well. She will continue with her home stretching program to prevent stiffness. She will contact me prior to her follow-up appointment in 3 months should any questions or concerns arise. Feel free to call me at any time should questions regarding her orthopedic management arise. I spent 22 minutes in reviewing the patient's records and imaging studies, seeing the patient and documenting in the medical record. Orders: Orders AMB Joint Injection/Aspiration Today M19.012 - Primary osteoarthritis, left shoulder Coding Level of Care Code Est Pt Level 3 (33224) Complex EM visit Add On G2211 Diagnoses Arthritis of left shoulder region M19.012 CPT Codes Coding - 56097 Large joint: 02003 - Large joint ([id number])
== END 2024-09-03 13:35 | disposition home or self-care (01) ==
PROVIDERS: PCP Internal Medicine; Visit Provider Orthopaedic Surgery
DX: M19.012 Primary osteoarthritis, left shoulder (principal)
CPT/HCPCS: 20610; 99213

== ENCOUNTER → 2024-09-03 12:58 | Outpatient (BNVA) | payer OTHER, SELFPAY | PROVIDERS: PCP Internal Medicine; Visit Provider Orthopaedic Surgery | DX: M19.012 Primary osteoarthritis, left shoulder (principal) | CPT/HCPCS: 20610; J1010; J2003 ==

== ENCOUNTER 2024-09-05 16:29 | Outpatient (REF) | payer OTHER, SELFPAY ==
--- NOTE | ~2024-09-05 | CT_ITS ---
CLINICAL HISTORY: COGNITIVE IMPAIRMENT WITH MEMORY LOSS CT head without IV contrast Comparison: None Findings: The ventricles are normal in configuration. Basilar cisterns intact. No advanced cerebral volume loss No intracranial hemorrhage, mass-effect or midline shift. No extra-axial fluid collections. The parenchyma is unremarkable in attenuation. Mccarthy-white matter junction preserved. No evidence of acute large vessel or territorial ischemia. Brainstem and cerebellum unremarkable. The calvarium is intact. The imaged portion of the paranasal sinuses are clear. No mastoid effusions. The orbital contents are unremarkable. Impression: 1. No CT evidence of acute intracranial pathology. 2. No advanced cerebral volume loss. Periventricular white matter appears unremarkable This document has been electronically signed by: Adán Yancey MD on 09/08/2024 12:59:36
== END 2024-09-05 16:30 | disposition home or self-care (01) ==
LOC: HO.CT 16:29
PROVIDERS: PCP Internal Medicine; Visit Provider Psychiatry & Neurology Neurology
DX: G31.84 Mild cognitive impairment of uncertain or unknown etiology (principal)
CPT/HCPCS: 70450

== ENCOUNTER → 2024-09-05 16:31 | Outpatient (BNV) | payer OTHER, SELFPAY | PROVIDERS: PCP Internal Medicine; Visit Provider Radiology Diagnostic Radiology | DX: G31.84 Mild cognitive impairment of uncertain or unknown etiology (principal) | CPT/HCPCS: 70450 ==

== ENCOUNTER 2024-12-09 13:11 | Outpatient (AMB) | payer OTHER, SELFPAY ==
--- NOTE | 2024-12-09 13:14 | MHC.OFFVIS ---
Vital Signs 12/09/24 13:20 Height 5 ft 1 in Weight 184 lb BMI 34.8 Intake Visit Reasons: Right shoulder pain Intake Note: Shikha is a 74 year old female who presents with complaints of right shoulder pain. She describes her pain as sharp in nature. Most of the pain is along the lateral aspect of her shoulder. She has done physical therapy exercises which aggravated her pain. She has also tried Tylenol, anti-inflammatory medicines and gabapentin which gave her mild relief. She has had cortisone injections in the past which gave her fairly good relief. She wishes to hold off on surgery if at all possible. Allergies iron Allergy (Intermediate, Verified 12/09/24 13:21) Unknown Penicillins Allergy (Intermediate, Verified 12/09/24 13:21) Unknown Sulfa (Sulfonamide Antibiotics) Allergy (Intermediate, Verified 12/09/24 13:21) Itching Medication List - Last Reconciled 12/09/24 by Lucian Bhakta MD gabapentin 300 mg PO BEDTIME levocetirizine 5 mg PO DAILY losartan 50 mg PO DAILY magnesium oxide 400 mg PO DAILY meloxicam 7.5 mg PO DAILY trimethoprim 100 mg PO DAILY PFSH Surgical History (Updated 01/16/24 @ 08:54 by Pinky Lr CMA) Hx of right knee surgery (~09/29/22) Hx of left knee surgery (~06/2022) Hx of hysterectomy Social History (Updated 08/09/23 @ 09:57 by Marian Grant CMA) Household Members: Children Housing: Apartment Alcohol intake: never Patient Tobacco Use Status: Never used Tobacco Current occupational status: disabled Physical Exam Const Other: Well-nourished well-developed very friendly female awake alert and oriented x3 in no acute distress Extrem Other: Bilateral upper extremity examination shows good capillary refill, no skin lesions noted, normal sensation light touch Right shoulder examination shows almost full range of motion when compared to her left shoulder, 4+ out of 5 strength with supraspinatus testing, positive impingement signs, no instability Office Procedures AMB Joint Injection/Aspiration Joint Injection/Aspiration Primary Site: right shoulder Injected: 40 mg of, DepoMedrol and 1% plain lidocaine Procedure: The patient tolerated the procedure well Coding 01251 - Large joint Procedure code (CPT) selection complete Assessment & Plan Assessment & Plan (1) Impingement of right shoulder: Code(s): M25.811 - Other specified joint disorders, right shoulder Category: Medical (2) Right shoulder pain: Code(s): M25.511 - Pain in right shoulder Plan Ms. Farfan presents with right shoulder pain due to impingement syndrome. The risks and benefits of a cortisone injection were discussed at length with the patient. The patient wished to proceed. She tolerated the injection well. She will continue with her home stretching program to prevent stiffness. I will see her back in 3-4 weeks' time for evaluation of her left shoulder pain. Feel free to call me at any time should questions regarding her orthopedic management arise. I spent 22 minutes in reviewing the patient's records and imaging studies, seeing the patient and documenting in the medical record. Orders: Orders AMB Joint Injection/Aspiration Today M25.811 - Other specified joint disorders, right shoulder Coding Level of Care Code Est Pt Level 3 (52160) Complex EM visit Add On G2211 Diagnoses Impingement of right shoulder M25.811 Right shoulder pain M25.511 CPT Codes Coding - 67297 Large joint: 19682 - Large joint ([id number])
[2024-12-09 13:20] VITALS: BMI 34.8
--- OUTSIDE RECORDS SUMMARY | 2024-12-09 16:04 | XMS_ITS | Clinical Summary ---
Author Organization LL [address] [place] [address] [place] [phone] Phone Care Team Providers Care Coremaker Pipe Name Role Phone Vincent Meza MD Primary Care Provider Allergies Active Allergy Reactions Criticality Noted Date Comments Penicillins High 01/13/2019 High burning sensation inside of skin Sulfa (Sulfonamide Antibiotics) Itching High 01/13/2019 Sulfa Drugs On the feet Medications acetaminophen (TYLENOL) 325 mg capsule Take by mouth. Active amLODIPine (NORVASC) 5 mg tablet Take 1 Tablet by mouth daily. 07/05/2023 Active azithromycin (ZITHROMAX) 250 mg tablet 08/28/2023 Active gabapentin (NEURONTIN) 300 mg capsule TAKE 1 CAPSULE BY MOUTH EVERY NIGHT 04/01/2021 Active irbesartan-hydr oCHLOROthiazide (AVALIDE) 300-12.5 mg per tablet Take 1 tablet by mouth daily. 03/14/2021 Active levocetirizine (XYZAL) 5 mg tablet Take 1 Tablet by mouth daily. 01/29/2024 Active loratadine (CLARITIN) 10 mg tablet TAKE 1 TABLET BY MOUTH DAILY NEEDED 08/03/2023 Active meloxicam (MOBIC) 7.5 mg tablet 02/27/2024 Active phenazopyridine (PYRIDIUM) 100 mg tablet TAKE 1 TABLET BY MOUTH TWICE DAILY NEEDED 07/05/2023 Active trimethoprim (TRIMPEX) 100 mg tablet TAKE 1/4 TABLET BY MOUTH FOUR TIMES DAILY 04/24/2023 Active Active Problems Problem Noted Date Diagnosed Date Basal cell carcinoma of nose 01/13/2019 Encounters Date Type Department Care Team Description 11/21/2024 10:00 AM EDT [facility] [address] [facility] [address] [place] [phone] Linnea Braden ILD (interstitial lung disease) ([facility] V24, [facility] V28) 11/21/2024 9:30 AM EDT [facility] [address] [facility] [address] [place] [phone] Jesenia Reynolds MD ILD (interstitial lung disease) ([facility] V24, [facility] V28) (Primary Dx) from Last 3 Months Surgical History Surgery Date Site/Laterality Comments HYSTERECTOMY PROCEDURE: HISTORICAL HYSTERECTOMY APPENDECTOMY PROCEDURE: OR APPENDECTOMY Medical History Medical History Date Comments Esophageal reflux DX:Esophageal reflux Family History Relation Name Status Comments Father Mother Social History Tobacco Use Types Packs/Day Years Used Date Smoking Tobacco: Never Smokeless Tobacco: Never Alcohol Use Standard Drinks/Week Comments No 0 (1 standard drink = 0.6 oz pur e alcohol) Comments Unknown Sex and Gender Information Value Date Recorded Sex Assigned at Not on file Legal Sex Female 7:46 PM EST Gender Identity Not on file Sexual Orientation Not on file Obstetrics History Last Filed Vital Signs Vital Sign Reading Time Taken Comments Blood Pressure 156/59 11/21/2024 9:33 AM EDT Pulse 70 11/21/2024 9:33 AM EDT Temperature 36.4 ??C (97.5 ??F) 11/21/2024 9:33 AM ED T Respiratory Rate 16 11/21/2024 9:33 AM EDT Oxygen Saturation 96% 11/21/2024 9:33 AM EDT Inhaled Oxygen Concentration - - Weight 85.3 kg (188 lb) 11/21/2024 9:33 AM EDT Height 152.4 cm (5') 11/21/2024 9:33 AM EDT Body Mass Index 36.72 11/21/2024 9:33 AM EDT Plan of Treatment Upcoming Encounters Date Type Department Care Team (Late st Contact Info) Description 06/15/2025 8:15 AM EDT [facility] [address] [facility] [address] [place] [address] Jesenia Reynolds MD [address] [facility] [address] [place] [address] Health Maintenance Due Date Last Done Comments Diabetes: Annual Foot Exam 1959 Diabetes: Annual Retina Eye Exam 1960 DTaP,Tdap,and Td Vaccines (1 - Tdap) 1968 Pneumococcal Vaccine: 50+ Years (1 of 2 - PCV) 1968 Zoster Vaccines (1 of 2) 1968 Colorectal Cancer Screening: Colonoscopy 08/05/2022 Depression Screening 08/05/2022 Falls Risk Assessment 08/05/2022 Hepatitis C Screening 08/05/2022 Osteoporosis Screening (Bone Density Screening) 08/05/2022 Social Influencers of Health Screening 08/05/2022 COVID-19 Vaccine ( season) 2024 07/11/2021, 12/21/2020, 11/29/2020 Diabetes: Annual Urine Albumin-Creatinine Ratio (uACR) 09/10/2024 RSV Immunization Adult Patients (1 - 1-dose 75+ series) 2024 Diabetes: Blood Sugar Control Test (HGBA1C) 03/09/2025 09/09/2024 Influenza Vaccine (Season Ended) 2025 05/17/2023, 06/03/2022, 06/27/2021, Additional history exists Diabetes: Annual GFR (Glomerular Filtration Rate) 09/09/2025 09/09/2024, 09/29/2023, 06/30/2022, Additional history exists Hypertension/CHF/CAD Annual BMP Blood Test 09/09/2025 09/09/2024, 09/29/2023, 06/30/2022, Additional history exists Cholesterol Screening (Lipid Panel) 09/09/2029 09/09/2024, 09/09/2024 HIB Vaccines Aged Out No longer eligi ble based on patient's age to complete this topic HPV Vaccines Aged Out No longer eligi ble based on patient's age to complete this topic Hepatitis A Vaccines Aged Out No long er eligible based on patient's age to complete this topic Hepatitis B Vaccines Aged Out No long er eligible based on patient's age to complete this topic IPV Vaccines Aged Out No longer eligi ble based on patient's age to complete this topic MMR Vaccines Aged Out No longer eligi ble based on patient's age to complete this topic Meningococcal ACWY Vaccine Aged Out N o longer eligible based on patient's age to complete this topic Meningococcal B Vaccine Aged Out No l onger eligible based on patient's age to complete this topic RSV Immunization Patients Under 20 months Aged Out No longer eligible based on patient's age to complete this topic Varicella Vaccines Aged Out No longer eligible based on patient's age to complete this topic Medical Devices Implanted Type Area Archaeologist Device Identifier Shelf Expiration Date Model / Serial / Lot Cement Bone Surg Simplex Radiopq Stry-Howm [id number] Implanted:Qty: 1 on 06/29/2022 by Lucian Bhakta MD Left: Knee [employer] [id number] 07/26/2023 6191-1-010 / / [id number] Cement Bone Surg Simplex Radiopq Stry-Howm [id number] 092 Implanted:Qty: 1 on 06/29/2022 by Lucian Bhakta MD Left: Knee [employer] [id number] 07/26/2023 6191-1-010 / / [id number] Knee Fem Triathlon Cr 3-Lt Stry-Howm [id number] 199 Implanted:Qty: 1 on 06/29/2022 by Lucian Bhakta MD Left: Knee [employer] [id number] 09/11/2026 5515-F-301 / / [id number] Knee Pat Symmetric X3 8x27mm Stry-Howm [id number] [id number] Implanted:Qty: 1 on 06/29/2022 by Lucian Bhakta MD Left: Knee [employer] [id number] 01/04/2027 5550-G-278 / / [id number] Knee Tib Insrt Ps-X3 [id number] Stry-Howm [id number] 750 Implanted:Qty: 1 on 06/29/2022 by Lucian Bhakta MD Left: Knee [employer] [id number] 10/13/2026 5532-G-413 / / [id number] Knee Baseplt Tib Cmnt Sz4 Stry-Howm [id number] 190 Implanted:Qty: 1 on 06/29/2022 by Lucian Bhakta MD Left: Knee [employer] [id number] 02/16/2027 5520-B-400 / / [id number] Peg Fix Femoral Distal Stry-Howm [id number] Implanted:Qty: 1 on 06/29/2022 by Lucian Bhakta MD Left: Knee [employer] [id number] 04/28/2027 5575-X-000 / / [id number] Knee Pat Symmetric X3 8x27mm Stry-Howm [id number] Implanted:Qty: 1 on 09/28/2022 by Lucian Bhakta MD [employer] [id number] 01/05/2027 5550-G-278 / / [id number] Knee Baseplt Tib Cmnt Sz4 Stry-Howm [id number] 190 Implanted:Qty: 1 on 09/28/2022 by Lucian Bhakta MD [employer] [id number] 08/01/2027 5520-B-400 / / [id number] Knee Tib Insrt Ps-X3 [id number] Stry-Howm [id number] 750 Implanted:Qty: 1 on 09/28/2022 by Lucian Bhakta MD [employer] [id number] 09/21/2025 5532-G-413 / / [id number] Peg Fix Femoral Distal Stry-Howm [id number] 704 Implanted:Qty: 1 on 09/28/2022 by Lucian Bhakta MD [employer] [id number] 06/17/2027 5575-X-000 / / [id number] Knee Fem Ps Cmnt #3 R Stry-Howm [id number] Implanted:Qty: 1 on 09/28/2022 by Lucian Bhakta MD [employer] [id number] 09/01/2027 5515-F-302 / / [id number] Cement Bone Surg Simplex Radiopq Stry-Howm [id number] 092 Implanted:Qty: 1 on 09/28/2022 by Lucian Bhakta MD [employer] [id number] 03/26/2025 6191-1-010 / / [id number] Cement Bone Surg Simplex Radiopq Stry-Howm [id number] 092 Implanted:Qty: 1 on 09/28/2022 by Lucian Bhakta MD [employer] [id number] 03/26/2025 6191--010 / / [id number] Procedures Procedure Name Priority Date/Time Associated Diagnosis Comments PULMONARY FUNCTION TESTING Routine 11/21/2024 10:33 AM EDT ILD (interstitial lung disease) (CMS/HCC V24, CMS/HCC V28) CREATININE, SERUM Routine 09/09/2024 12: 00 AM EST Mixed hyperlipidemia Type 2 diabetes mellitus without complications (CMS/HCC) Cough, unspecified Unspecified abdominal pain Essential (primary) hypertension Interstitial cystitis (chronic) without hematuria Other microscopic hematuria HEMOGLOBIN A1C Routine 09/09/2024 12:00 AM EST Mixed hyperlipidemia Type 2 diabetes mellitus without complications (CMS/HCC) Cough, unspecified Unspecified abdominal pain Essential (primary) hypertension Interstitial cystitis (chronic) without hematuria Other microscopic hematuria LDL CHOLESTEROL, DIRECT Routine 09/09/2024 12:00 AM EST Mixed hyperlipidemia Type 2 diabetes mellitus without complications (CMS/HCC) Cough, unspecified Unspecified abdominal pain Essential (primary) hypertension Interstitial cystitis (chronic) without hematuria Other microscopic hematuria from Last 3 Months or Most Recently Relevant to Health Maintenance Results * Pulmonary function testing: Carbon Monoxide Diffusing Capacity, Nitrogen Wash Out, Spirometry with Bronchodilator, Vital Capacity Test, Pulmonary Stress Test, 6 min walk (11/21/2024 10:33 AM EDT) Impressions Jesenia Reynolds MD - 11/21/2024 10:33 AM EDT (1) PFT FEV1/FVC 78%. FEV1 1.76 at 96%. FVC 92%. No bronchodilator response. TLC 103%. RV 116%. DLCO 90% (adjusted 86%). Compared to 02/29/2024 there is seem to be no significant change. Shape of flow volume loop showed neither intrathoracic nor extrathoracic obstruction. Mild obstruction and air trapping. ??No restriction. ??No decrease in diffusion. Finding consistent with mild obstructive lung disease. (2) 6-minute walk: Walked six minutes covering (152m/500ft) without Leg Fatigue, Mild SOB Lowest oxygen saturation was 93%. Returned to PFT lab for Rest & Recovery. After 1 min RaSpO2 = 95% HR = 95; After 2 min RaSpO2 = 95% HR = 95. No indication for supplemental Oxygen for activity. us Jesenia Reynolds MD PFT ORDERABLES Final Result * Creatinine (09/09/2024 12:00 AM EST) Creatinine 0.88 0.50 - 1.10 mg/dL LAB CHEMISTRY METHOD 09/09/2024 7:48 PM EST [facility] eGFR 69 >=60 mL/min/1. 73m2 LAB CHEMISTRY METHOD 09/09/2024 7:48 PM EST [facility] Comment:Calculation based on the??Chronic Kidney Disease Epidemiology Collaboration (CKD-EPI) equation refit??without adjustment for race. Blood Venous blood specimen / Unknown 09/09/2024 09/09/2024 5:46 PM EST us [facility] LAB BLOOD ORDERABLES Final Res ult [facility] [address] [place] [address], * (ABNORMAL) LDL cholesterol, direct (09/09/2024 12:00 AM EST) LDL Direct 121(H) <=100 mg/dL LAB CHEMISTRY METHOD 09/09/2024 8:10 PM EST [facility] Blood Venous blood specimen / Unknown 09/09/2024 09/09/2024 5:46 PM EST [facility] LAB BLOOD ORDERABLES Final Res ult [facility] [address] [place] [address], * Hemoglobin A1c (09/09/2024 12:00 AM EST) Hemoglobin A1C 5.8 <6.5 % LAB CHEMISTRY METHOD 09/09/2024 9:34 PM EST [facility] Mean Bld Glu Estim. 120 mg/dL LAB CHEMISTRY METHOD 09/09/2024 9:34 PM EST [facility] Blood Venous blood specimen / Unknown 09/09/2024 09/09/2024 5:46 PM EST [facility] LAB BLOOD ORDERABLES Final Res ult Performing Organization Address City/[facility]/ZIP Co de Phone Number [facility] [address] [place] [address], [place] [phone] from Last 3 Months or Most Recently Relevant to Health Maintenance Insurance [facility] Care Teams Coremaker Pipe Relationship Specialty Start Date End Date Vincent Meza MD [address] [place] [address] [address] [place] [address] PCP - General Internal Medicine 01/13/19
--- OUTSIDE RECORDS SUMMARY | 2024-12-09 16:04 | XMS_ITS | Encounter Summary ---
Author Organization [facility] Address [address] [place] [address] Care Team Providers Care Project Manager Industrial Name Role Phone Unknown Primary Care Provider [phone] Encounter Details Date Type Department Care Team (Late st Contact Info) Description 09/27/2022 Telephone [facility] [address] [place] [address] Jenny Muller, PA [address] [facility] [address] [place] [address] Social History Tobacco Use Types Packs/Day Years Used Date Smoking Tobacco: Never Assessed Sex and Gender Information Value Date Recorded Sex Assigned at Not on file Gender Identity Not on file Sexual Orientation Not on file COVID-19 Exposure Response Date Recorded In the last 10 days, have yo u been in contact with someone who was confirmed or suspected to have Coronavirus/COVID-19? No / Unsure 09/24/2022 10:36 AM EST documented as of this encounter Plan of Treatment Not on file documented as of this encounter Visit Diagnoses Not on filedocumented in this encounter Care Teams Project Manager Industrial Relationship Specialty Start Date End Date Unknown Unknow Provider Address PCP - General 11/28/21 documented as of this encounter
--- OUTSIDE RECORDS SUMMARY | 2024-12-09 16:04 | XMS_ITS | Encounter Summary ---
Author Organization [facility] Address [address] [place] [address] Care Team Providers Care Curriculum Specialist Name Role Phone Vincent Meza MD Primary Care Provider [phone] Encounter Details Date Type Department Care Team (Latest Contact Info) Description 09/09/[address] [facility] - Main Lab [address] [facility] [place] [address] Vicente Beltran PA [address] [facility] [address] [place], [place] [id number] Mixed hyperlipidemia; Type 2 diabetes mellitus without complications (CMS/HCC V24, CMS/HCC V28); Cough, unspecified; Unspecified abdominal pain; Essential (primary) hypertension; Interstitial cystitis (chronic) without hematuria; Other microscopic hematuria Social History Tobacco Use Types Packs/Day Years Used Date Smoking Tobacco: Never Smokeless Tobacco: Never Alcohol Use Standard Drinks/Week Comments No 0 (1 standard drink = 0.6 oz pur e alcohol) Comments Unknown Sex and Gender Information Value Date Recorded Sex Assigned at Not on file Legal Sex Female 7:46 PM EST Gender Identity Not on file Sexual Orientation Not on file documented as of this encounter Plan of Treatment Upcoming Encounters Date Type Department Care Team (Late st Contact Info) Description 06/15/2025 8:15 AM EDT Office Visit Pulmonol - [place] [address] [facility] [address] [place] [address] Jesenia Reynolds MD 175 [facility] [address] [place] [address] documented as of this encounter Procedures Procedure Name Priority Date/Time Associated Diagnosis Comments URINALYSIS MICROSCOPIC ONLY Routine 09/09/2024 12:00 AM EST Mixed hyperlipidemia Type 2 diabetes mellitus without complications (CMS/HCC) Cough, unspecified Unspecified abdominal pain Essential (primary) hypertension Interstitial cystitis (chronic) without hematuria Other microscopic hematuria SST - GOLD Routine 09/09/2024 12:00 AM EST Mixed hyperlipidemia Type 2 diabetes mellitus without complications (CMS/HCC) Cough, unspecified Unspecified abdominal pain Essential (primary) hypertension Interstitial cystitis (chronic) without hematuria Other microscopic hematuria LIPID PANEL WITH REFLEX TO DIRECT LDL Routine 09/09/2024 12:00 AM EST Mixed hyperlipidemia Type 2 diabetes mellitus without complications (CMS/HCC) Cough, unspecified Unspecified abdominal pain Essential (primary) hypertension Interstitial cystitis (chronic) without hematuria Other microscopic hematuria URINALYSIS MICROSCOPIC ONLY Routine 09/09/2024 12:00 AM EST Mixed hyperlipidemia Type 2 diabetes mellitus without complications (CMS/HCC) Cough, unspecified Unspecified abdominal pain Essential (primary) hypertension Interstitial cystitis (chronic) without hematuria Other microscopic hematuria CREATININE, SERUM Routine 09/09/2024 12: 00 AM EST Mixed hyperlipidemia Type 2 diabetes mellitus without complications (CMS/HCC) Cough, unspecified Unspecified abdominal pain Essential (primary) hypertension Interstitial cystitis (chronic) without hematuria Other microscopic hematuria BUN Routine 09/09/2024 12:00 AM EST Mixed hyperlipidemia Type 2 diabetes mellitus without complications (CMS/HCC) Cough, unspecified Unspecified abdominal pain Essential (primary) hypertension Interstitial cystitis (chronic) without hematuria Other microscopic hematuria MAGNESIUM Routine 09/09/2024 12:00 AM EST Mixed hyperlipidemia [...] cystitis (chronic) without hematuria Other microscopic hematuria HEPATIC FUNCTION PANEL Routine 09/09/2024 12:00 AM EST Mixed hyperlipidemia Type 2 diabetes mellitus without complications (CMS/HCC) Cough, unspecified Unspecified abdominal pain Essential (primary) hypertension Interstitial cystitis (chronic) without hematuria Other microscopic hematuria ELECTROLYTE PANEL Routine 09/09/2024 12: 00 AM EST Mixed hyperlipidemia Type 2 diabetes mellitus without complications (CMS/HCC) Cough, unspecified Unspecified abdominal pain Essential (primary) hypertension Interstitial cystitis (chronic) without hematuria Other microscopic hematuria documented in this encounter Results * SST tube (09/09/2024 12:00 AM EST) Extra Tube Hold for add-ons. 09/09/2024 7:02 PM EST [facility] Comment:Auto resulted. Blood Venous blood specimen / Unknown 09/09/2024 09/09/2024 5:46 PM EST us Vicente MAX LAB BLOOD ORDERABLES Final Res ult [facility] [address] [place] [address], [place] [phone] * (ABNORMAL) Urinalysis microscopic only (09/09/2024 12:00 AM EST) RBC, Urine 1.0 0 - 4 /HPF LAB URINALYSIS - AUTOMATED METHOD 09/09/2024 7:55 PM EST [facility] WBC, Urine 21.8(H) 0 - 4 /HPF LAB URINALYSIS - AUTOMATED METHOD 09/09/2024 7:55 PM [facility] Squamous Epithelial, Urine 89(H) 0 - 60 /LPF LAB URINALYSIS - AUTOMATED METHOD 09/09/2024 7:55 PM [facility] Bacteria, Urine Moderate( A) Negative /HPF LAB URINALYSIS - AUTOMATED METHOD 09/09/2024 7:55 PM [facility] Hyaline Casts, Urine 0.8 0 - 3 /LPF LAB URINALYSIS - AUTOMATED METHOD 09/09/2024 7:55 PM [facility] Yeast, Urine Present(A ) None /HPF LAB URINALYSIS - AUTOMATED METHOD 09/09/2024 7:55 PM [facility] Urine Urine specimen obtained by clean catch procedure / Unknown 09/09/2024 09/09/2024 5:46 PM EST Vicente MAX LAB URINE ORDERABLES Final Res ult [facility] [address] [place] [address], [place] [phone] * Magnesium (09/09/2024 12:00 AM EST) Magnesium 2.2 1.9 - 2.6 mg/dL LAB CHEMISTRY METHOD 09/09/2024 7:48 PM [facility] Blood Venous blood specimen / Unknown 09/09/2024 09/09/2024 5:46 PM EST Vicente MAX LAB BLOOD ORDERABLES Final Res ult [facility] [address] [place] [address], [place] [phone] * Hemoglobin A1c (09/09/2024 12:00 AM EST) Hemoglobin A1C 5.8 <6.5 % LAB CHEMISTRY METHOD 09/09/2024 9:34 PM EST [facility] Mean Bld Glu Estim. 120 mg/dL LAB CHEMISTRY METHOD 09/09/2024 9:34 PM EST [facility] Blood Venous blood specimen / Unknown 09/09/2024 09/09/2024 5:46 PM EST us Vicente MAX LAB BLOOD ORDERABLES Final Res ult [facility] [address] [place] [address], [place] [phone] * BUN (09/09/2024 12:00 AM EST) Pathologist [facility] BUN 19 5 - 25 mg/dL LAB CHEMISTRY METHOD 09/09/2024 7:48 PM EST [facility] Blood Venous blood specimen / Unknown 09/09/2024 09/09/2024 5:46 PM EST Vicente MAX LAB BLOOD ORDERABLES Final Res ult [facility] [address] [place] [address], [place] [phone] * (ABNORMAL) LDL cholesterol, direct (09/09/2024 12:00 AM EST) Pathologist [facility] LDL Direct 121(H) <=100 mg/dL LAB CHEMISTRY METHOD 09/09/2024 8:10 PM EST [facility] Blood Venous blood specimen / Unknown 09/09/2024 09/09/2024 5:46 PM EST us Vicente MAX LAB BLOOD ORDERABLES Final Res ult [facility] [address] [place] [address], * Creatinine (09/09/2024 12:00 AM EST) Pathologist [facility] Creatinine 0.88 0.50 - 1.10 mg/dL LAB CHEMISTRY METHOD 09/09/2024 7:48 PM EST [facility] eGFR 69 >=60 mL/min/1. 73m2 LAB CHEMISTRY METHOD 09/09/2024 7:48 PM EST [facility] Comment:Calculation based on the??Chronic Kidney Disease Epidemiology Collaboration (CKD-EPI) equation refit??without adjustment for race. Blood Venous blood specimen / Unknown 09/09/2024 09/09/2024 5:46 PM EST Vicente MAX LAB BLOOD ORDERABLES Final Res ult Performing Organization Address City/State/[facility] Co de Phone Number [facility] [address] [place] [address], [place] [phone] * Hepatic function panel (09/09/2024 12:00 AM EST) [facility] Total Protein 7.6 6.0 - 8.0 g/dL LAB CHEMISTRY METHOD 09/09/2024 8:10 PM EST [facility] Albumin 4.3 3.2 - 5.0 g/dL LAB CHEMISTRY METHOD 09/09/2024 8:10 PM EST [facility] Total Bilirubin 0.7 0.0 - 1.4 mg/dL LAB CHEMISTRY METHOD 09/09/2024 8:10 PM [facility] Bilirubin, Direct 0.2 0.0 - 0.3 mg/dL LAB CHEMISTRY METHOD 09/09/2024 8:10 PM [facility] Bilirubin, Indirect 0.5 0.0 - 1.1 mg/dL LAB CHEMISTRY METHOD 09/09/2024 8:10 PM EST [facility] ALT (SGPT) 23 10 - 60 unit/L LAB CHEMISTRY METHOD 09/09/2024 8:10 PM [facility] AST (SGOT) 18 10 - 42 unit/L LAB CHEMISTRY METHOD 09/09/2024 8:10 PM [facility] Alkaline Phosphatase 77 42 - 121 unit/L LAB CHEMISTRY METHOD 09/09/2024 8:10 PM [facility] Blood Venous blood specimen / Unknown 09/09/2024 09/09/2024 5:46 PM EST us Vicente MAX LAB BLOOD ORDERABLES Final Res ult [facility] [address] [place] [address], [place] [phone] * (ABNORMAL) Lipid panel with reflex to direct LDL (09/09/2024 12:00 AM EST) Cholesterol 201(H) 0 - 200 mg/dL LAB CHEMISTRY METHOD 09/09/2024 8:10 PM [facility] Triglycerides 149 0 - 150 mg/dL LAB CHEMISTRY METHOD 09/09/2024 8:10 PM [facility] HDL 67 >=40 mg/dL LAB CHEMISTRY METHOD 09/09/2024 8:10 PM [facility] LDL Calculated 104(H) 0 - 100 mg/dL LAB CHEMISTRY METHOD 09/09/2024 8:10 PM [facility] VLDL Cholesterol Yoni 29.8 mg/dL LAB CHEMISTRY METHOD 09/09/2024 8:10 PM [facility] Non HDL Chol. (LDL+VLDL) 134 <145 mg/dL LAB CHEMISTRY METHOD 09/09/2024 8:10 PM [facility] Chol/HDL Ratio 3.0 0.0 - 4.4 LAB CHEMISTRY METHOD 09/09/2024 8:10 PM [facility] Blood Venous blood specimen / Unknown 09/09/2024 09/09/2024 5:46 PM EST Vicente MAX LAB BLOOD ORDERABLES Final Res ult Performing Organization Address [facility]/ZIP Co de Phone Number [facility] [address] [place] [address], [place] [phone] * Electrolyte panel (09/09/2024 12:00 AM EST) Sodium 136 133 - 145 mmol/L LAB CHEMISTRY METHOD 09/09/2024 8:10 PM EST [facility] Potassium 4.2 3.5 - 5.5 mmol/L LAB CHEMISTRY METHOD 09/09/2024 8:10 PM EST [facility] Chloride 104 96 - 110 mmol/L LAB CHEMISTRY METHOD 09/09/2024 8:10 PM EST [facility] CO2 24 21 - 32 mmol/L LAB CHEMISTRY METHOD 09/09/2024 8:10 PM EST [facility] Anion Gap 8 3 - 11 LAB CHEMISTRY METHOD 09/09/2024 8:10 PM EST [facility] Blood Venous blood specimen / Unknown 09/09/2024 09/09/2024 5:46 PM EST Vicente MAX LAB BLOOD ORDERABLES Final Res ult Performing Organization Address [facility]/ZIP Co de Phone Number [facility] [address] [place] [address], [place] [phone] documented in this encounter Visit Diagnoses Diagnosis Mixed hyperlipidemia Type 2 diabetes mellitus without complications (CMS/HCC V24, CMS/HCC V28) Cough, unspecified Unspecified abdominal pain Essential (primary) hypertension Unspecified essential hypertension Interstitial cystitis (chronic) without hematuria Other microscopic hematuria documented in this encounter Care Teams Curriculum Specialist Relationship Specialty Start Date End Date Vincent Meza MD [address] [address] PCP - General Internal Medicine 01/13/19 documented as of this encounter
--- OUTSIDE RECORDS SUMMARY | 2024-12-09 16:04 | XMS_ITS | Clinical Summary ---
Author Organization [facility] Address [address] [place] [address] Care Team Providers Care Collection Analyst Name Role Phone Unknown Primary Care Provider [phone] Allergies Active Allergy Reactions Criticality Noted Date Comments Penicillins Anaphylaxis High 05/20/2022 Sulfa Antibiotics Itching Low 05/20/2022 Medications Medication Sig Dispensed Refills Start Date End Date Status gabapentin (NEURONTIN) 300 MG capsule Take 300 mg by mouth 3 (three) times a day. Active irbesartan-hydrochlo rothiazide (AVALIDE) 300-12.5 MG per tablet Take 1 tablet by mouth daily. Active loratadine (CLARITIN) 10 MG tablet Take 10 mg by mouth daily. Active azithromycin (ZITHROMAX) 250 MG tabletIndications:Ac chantal bacterial bronchitis Take 2 tabs PO on day one and one tabs on days 2-5 #6 6 tablet 05/20/2022 Active gabapentin (NEURONTIN) 300 MG capsule Take 300 mg by mouth. 04/09/2022 Active loratadine (CLARITIN) 10 MG tablet Take 10 mg by mouth Once before discharge. 03/11/2022 Active senna-docusate (SENNA-S) 8.6-50 MG Take 1 tablet by mouth 2 (two) times a day. 06/30/2022 Active irbesartan-hydrochlo rothiazide (AVALIDE) 300-12.5 MG per tablet Take 1 tablet by mouth. 03/13/2022 Active fluticasone-vilanter ol (BREO ELLIPTA) 100-25 MCG/ACT inhaler Inhale 1 puff daily. Active trimethoprim (PRIMSOL) 100 MG tablet Take 100 mg by mouth 2 (two) times a day. Active magnesium oxide 400 (240 Mg) MG Tab tablet Take 400 mg by mouth daily. Take 2 hours apart from other medications; take with food Active albuterol (VOSPIRE ER) 8 MG 12 hr tablet Take 8 mg by mouth twice daily (every 12 hours). Active levocetirizine (XYZAL) 2.5 MG/5ML solution Take 2.5 mg by mouth every evening. Active meloxicam (MOBIC) 15 MG tablet Take 15 mg by mouth daily. Active doxycycline (VIBRAMYCIN) 100 MG capsuleIndications:A cute bacterial bronchitis Take 1 capsule (100 mg total) by mouth 2 (two) times a day. 14 capsule 05/13/2024 Active proMETHAZINE-dextrom ethorphan (proMETHAZINE-DM) 6.25-15 MG/5ML syrupIndications:Acu te bacterial bronchitis Take 5 mL by mouth 4 times daily (every 6 hours) as needed for cough. 120 mL 05/13/2024 Active Active Problems No known active problems Social History Tobacco Use Types Packs/Day Years Used Date Smoking Tobacco: Never Smokeless Tobacco: Never Tobacco Cessation:Counseling Given: Not Answered Sex and Gender Information Value Date Recorded Sex Assigned at Not on file Gender Identity Not on file Sexual Orientation Not on file Last Filed Vital Signs Vital Sign Reading Time Taken Comments Blood Pressure 144/85 05/13/2024 1:04 PM EDT Pulse 98 05/13/2024 1:04 PM EDT Temperature 36.2 ??C (97.1 ??F) 05/13/2024 1:04 PM ED T Respiratory Rate 17 09/29/2023 11:31 AM EST Oxygen Saturation 93% 05/13/2024 1:04 PM EDT Inhaled Oxygen Concentration - - Weight 84.8 kg (187 lb) 04/25/2023 5:01 PM EDT Height - - Body Mass Index - - Plan of Treatment Health Maintenance Due Date Last Done Comments Hepatitis C Virus Screening 1950 DTaP/Tdap/Td Vaccines (1 - Tdap) 1968 Mammogram 1989 Colonoscopy 1994 Pneumococcal Vaccines 50+ (1 of 1 - PCV) 1999 Zoster (Shingles) Vaccine (1 of 2) 1999 DXA Bone Density (Females,Ages 65 and older) 2014 Influenza Vaccine 03/27/2024 COVID-19 Vaccine (4 - 2023-2 5 season) 2024 07/11/2021, 12/21/2020, 11/29/2020 RSV Vaccine 60 years and older and Patients (1 - 1-dose 75+ series) 2024 Hepatitis B Vaccines Aged Out No long er eligible based on patient's age to complete this topic Care Teams Collection Analyst Relationship Specialty Start Date End Date Unknown Unknow Provider Address PCP - General 11/28/21
--- OUTSIDE RECORDS SUMMARY | 2024-12-09 16:04 | XMS_ITS | Encounter Summary ---
Author Organization [facility] Address [address] [place] [address] Care Team Providers Care Package Maker Name Role Phone Unknown Primary Care Provider [phone] Encounter Details Date Type Department Care Team (Late st Contact Info) Description 08/29/2024 Scanned Document [address] [place] [phone] Provider, Generic Social History Tobacco Use Types Packs/Day Years Used Date Smoking Tobacco: Never Smokeless Tobacco: Never Sex and Gender Information Value Date Recorded Sex Assigned at Not on file Gender Identity Not on file Sexual Orientation Not on file documented as of this encounter Plan of Treatment Not on file documented as of this encounter Visit Diagnoses Not on filedocumented in this encounter Care Teams Package Maker Relationship Specialty Start Date End Date Unknown Unknow Provider Address PCP - General 11/28/21 documented as of this encounter
--- OUTSIDE RECORDS SUMMARY | 2024-12-09 16:04 | XMS_ITS | Clinical Summary ---
Author Organization [facility] Address [address] [place] [address] Care Team Providers Care Trash Collector Name Role Phone Vincent Meza MD Primary Care Provider [phone] Allergies Active Allergy Reactions Criticality Noted Date Comments Iron Other (See Comments) 06/22/2022 malaise Penicillins Anaphylaxis High 01/13/2019 High burning sensation inside of skin Sulfa Antibiotics Itching Medium 01/13/2019 On the feet Medications Medication Sig Dispensed Refills Start Date End Date Status gabapentin (NEURONTIN) 300 MG capsule Take 1 capsule (300 mg total) by mouth every evening. 0 04/09/2022 Active irbesartan-hydroCH LOROthiazide (AVALIDE) 300-12.5 MG per tablet Take 1 tablet by mouth daily with lunch. 0 03/13/2022 Active loratadine (CLARITIN) 10 MG tablet Take 1 tablet (10 mg total) by mouth daily as needed. 0 03/11/2022 Active clindamycin (CLEOCIN) 300 MG capsule Take 2 capsules 1 hour prior to dental appointment 10 capsule 1 07/19/2022 Active TRIMETHOPRIM POIndications:bloo d in urine per pt Take 25 mg by mouth every night at bedtime. 0 Active aspirin EC 81 MG tablet Take 1 tablet (81 mg total) by mouth every 12 (twelve) hours. 84 tablet 0 09/29/2022 Active methocarbamol (ROBAXIN) 750 MG tablet Take 1 tablet (750 mg total) by mouth every 6 (six) hours as needed (spasms). 50 tablet 0 09/29/2022 Active oxyCODONE (Roxicodone) 5 MG immediate release tablet Take 1-2 tablets (5-10 mg total) by mouth every 4 (four) hours as needed for pain. 42 tablet 0 09/29/2022 Active pantoprazole (Protonix) 40 MG tablet Take 1 tablet (40 mg total) by mouth daily. 42 tablet 0 09/29/2022 Active senna-docusate (PERICOLACE) 8.6-50 MG Take 1 tablet by mouth 2 (two) times a day as needed for constipation. 50 tablet 0 09/29/2022 Active acetaminophen (TYLENOL EXTRA STRENGTH) 500 MG tablet Take 2 tablets (1,000 mg total) by mouth every 8 (eight) hours. 90 tablet 1 10/02/2022 Active trimethoprim (TRIMPEX) 100 MG tablet TAKE 1/4 TABLET BY MOUTH FOUR TIMES DAILY 0 09/29/2022 Active Immunizations Name Administration Dates Next Due Covid-19 (Pfizer) Dilution Required 07/11/2021,0 12/21/2020,11/29/2020 Social History Tobacco Use Types Packs/Day Years Used Date Smoking Tobacco: Never Smokeless Tobacco: Never Tobacco Cessation:Counseling Given: Not Answered Alcohol Use Standard Drinks/Week Comments Never 0 (1 standard drink = 0.6 oz pur e alcohol) Sex and Gender Information Value Date Recorded Sex Assigned at Female 06/22/2022 9:26 AM EDT Gender Identity Female 06/22/2022 9:26 AM EDT Sexual Orientation Straight 06/29/2022 10 :03 AM EDT Job Start Date Occupation Industry Not on file Not on file Not on file Last Filed Vital Signs Vital Sign Reading Time Taken Comments Blood Pressure 163/80 09/29/2023 3:11 PM EST Pulse 99 09/29/2023 3:11 PM EST Temperature 36.4 ??C (97.6 ??F) 09/29/2023 3:11 PM ES T Respiratory Rate 16 09/29/2023 3:11 PM EST Oxygen Saturation 96% 09/29/2023 3:11 PM EST Inhaled Oxygen Concentration - - Weight 83.5 kg (184 lb) 09/29/2023 1:15 PM EST Height 152.4 cm (5') 09/29/2023 1:15 PM EST Body Mass Index 35.94 09/29/2023 1:15 PM EST Plan of Treatment Health Maintenance Due Date Last Done Comments Hepatitis C Screening 1949 Depression Screening 1961 BMI Counseling 1967 Preventative Health Evaluation 1967 DTap / Tdap / Td (1 - Tdap) 1968 Colon Cancer Screening (Colonoscopy) 1994 Shingrix-Zoster Vaccine (1 o f 2) 1999 Fall Risk Assessment 2014 Osteoporosis Screening (DEXA Scan) 2014 Pneumococcal Vaccine (1 of 1 - PCV) 2014 COVID-19 Vaccine (4 - 2023-2 5 season) 2024 07/11/2021, 12/21/2020, 11/29/2020 Influenza Vaccine (#1) 2024 RSV Adult > 60+ Yrs or (1 - 1-dose 75+ series) 2024 Hepatitis B Vaccines Aged Out No long er eligible based on patient's age to complete this topic RSV Ped < 20 months Aged Out No longe r eligible based on patient's age to complete this topic Medical Devices Implanted Type Area Surveillance Operator Device Identifier Shelf Expiration Date Model / Serial / Lot Cement Bone Surg Simplex Radiopq Stry-Howm 7275-5-268-114 092 - [id number] Implanted:Qty: 1 on 06/29/2022 by Lucian Bhakta MD at [facility] and Med Left: Knee [employer] [id number] 07/26/2023 6191-1-010 / / [id number] Cement Bone Surg Simplex Radiopq Stry-Howm [id number] 092 - [id number] Implanted:Qty: 1 on 06/29/2022 by Lucian Bhakta MD at [facility] and Med Left: Knee [employer] [id number] 07/26/2023 6191-1-010 / / [id number] Knee Fem Triathlon Cr 3-Lt Stry-Howm 8885-Q-[id number] 199 - [id number] Implanted:Qty: 1 on 06/29/2022 by Lucian Bhakta MD at [facility] and Med Left: Knee [employer] [id number] 09/11/2026 5515-F-301 / / [id number] Knee Pat Symmetric X3 8x27mm Stry-Howm 8682-J-884-288 021 - [id number] Implanted:Qty: 1 on 06/29/2022 by Lucian Bhakta MD at [facility] and [facility] Left: Knee [employer] [id number] 01/04/2027 5550-G-278 / / [id number] Knee Tib Insrt Ps-X3 1f7s00sp Stry-Howm 5919-N-173-534 750 - [id number] Implanted:Qty: 1 on 06/29/2022 by Lucian Bhakta MD at [facility] and [facility] Left: Knee [employer] [id number] 10/13/2026 5532-G-413 / / [id number] Knee Baseplt Tib Cmnt Sz4 Stry-Howm 6953-A-914-189 190 - [id number] Implanted:Qty: 1 on 06/29/2022 by Lucian Bhakta MD at [facility] and [facility] Left: Knee [employer] [id number] 02/16/2027 5520-B-400 / / [id number] Peg Fix Femoral Distal Stry-Howm 9823-W-569-547 704 - [id number] Implanted:Qty: 1 on 06/29/2022 by Lucian Bhakta MD at [facility] and [facility] Left: Knee [employer] [id number] 04/28/2027 5575-X-000 / / [id number] Knee Pat Symmetric X3 8x27mm Stry-Howm 1638-R-359-288 021 - [id number] Implanted:Qty: 1 on 09/28/2022 by Lucian Bhakta MD at [facility] and Med [employer] [id number] 01/05/2027 5550-G-278 / / [id number] Knee Baseplt Tib Cmnt Sz4 Stry-Howm 3969-E-448-189 190 - [id number] Implanted:Qty: 1 on 09/28/2022 by Lucian Bhakta MD at [facility] and [facility] [employer] [id number] 08/01/2027 5520-B-400 / / [id number] Knee Tib Insrt Ps-X3 3q4l45ym Stry-Howm 7176-B-039-534 750 - [id number] Implanted:Qty: 1 on 09/28/2022 by Lucian Bhakta MD at [facility] and [facility] [employer] [id number] 09/21/2025 5532-G-413 / / [id number] Peg Fix Femoral Distal Stry-Howm 6901-E-757-547 704 - [id number] Implanted:Qty: 1 on 09/28/2022 by Lucian Bhakta MD at [facility] and [facility] [employer] [id number] 06/17/2027 5575-X-000 / / [id number] Knee Fem Ps Cmnt #3 R Stry-Howm 4632-C-296-325 692 - [id number] Implanted:Qty: 1 on 09/28/2022 by Lucian Bhakta MD at [facility] and [facility] [employer] [id number] 09/01/2027 5515-F-302 / / [id number] Cement Bone Surg Simplex Radiopq Stry-Howm 9115-8-342-114 092 - [id number] Implanted:Qty: 1 on 09/28/2022 by Lucian Bhakta MD at [facility] and [facility] [employer] [id number] 03/26/2025 6191-1-010 / / [id number] Cement Bone Surg Simplex Radiopq Stry-Howm 4324-1-468-114 092 - [id number] Implanted:Qty: 1 on 09/28/2022 by Lucian Bhakta MD at [facility] and [facility] [id number] 03/26/2025 6191-1-010 / / [id number] Insurance Payer Benefit Plan / Group Subscriber ID Effective Dates Phone Address [facility] [id number] 2021-Present [address] [address] [place] [address] [facility] Effective for all dates 1 [facility] [address] [place] [address] [facility] Advance Directives For more information, please contact: [phone] Latest Code Status on File Code Status Date Activated Date Inactivated Comments Full Code 09/28/2022 9:07 AM 09/29/2022 6:14 PM This co de status was ascertained in the following way: discussion with patient . Code Status History Code Status Date Activated Date Inactivated Comments Full Code 09/28/2022 5:20 AM 09/28/2022 9:07 AM This co de status was ascertained in the following way: discussion with patient . Full Code 06/29/2022 3:06 PM 06/30/2022 7:59 PM This code status was ascertained in the following way: discussion with patient . Full Code 06/29/2022 9:46 AM 06/29/2022 3:06 PM This code status was ascertained in the following way: discussion with patient . Care Teams Trash Collector Relationship Specialty Start Date End Date Vincent Meza MD [address] [place] [address] PCP - General Internal Medicine 04/03/22
--- OUTSIDE RECORDS SUMMARY | 2024-12-09 16:04 | XMS_ITS | Encounter Summary ---
Author Organization [facility] Address [address] [place] [address] Care Team Providers Care Automation Tester Name Role Phone Unknown Primary Care Provider [phone] Encounter Details Date Type Department Care Team (Late st Contact Info) Description 08/29/2024 Scanned Document [address] [place] [id number] Provider, Generic Social History Tobacco Use [...] on filedocumented in this encounter Care Teams Automation Tester Relationship Specialty Start Date End Date Unknown Unknow Provider Address PCP - General 11/28/21 documented as of this encounter
--- OUTSIDE RECORDS SUMMARY | 2024-12-09 16:04 | XMS_ITS | Data Portability ---
Author Organization [place] [facility] Nettie Braxton [facility] Address [address] [place] [address] Care Team Providers Care Chain Builder Name Role Phone NADIYA OLIVO Primary Care Provider [phone] Assessment Encounter Date Assessment Date Assessment LastModified [...] was right total knee in September 2022.? overall she is recovering well. Her pain is much improved compared to before surgery. She is walking largely without an assistive device. She has good function. She has good range of motion. Her strength is improving. Overall, patient reports good pain relief in the knee and satisfactory cheondoism of function in terms of activities of [...] total knee arthroplasty. Continue knee conditioning exercises. Epxh-uxl-sajbdv r medications as needed. Ultimate failure may [...] view 023 03/16/20 23 [email or web address] [facility], [address], [place], [address], 3 08:47:14 XR, knee, 1 or 2 view 023 03/16/20 23 [email or web address] [facility], [address], [place], [address], 3 08:47:14 Medication Orders None record ed. [...] Recorded Time Pain of right knee joint [id number] Active 2022 Lucian Bhakta MD [address] [facility] [address], [facility] [place], [address] [facility] [place] - [facility] 14:34:43 Problem Notes None recorded. Procedures Surgical History Date Name Laterality Status Provider Name and Address Organization Details Recorded Time Total knee arthroplasty completed Daylin Quinn [place] - [facility] 11/28/2022 14:24:50 Imaging Results None recorded. [...] Updated DateTime 03/16/2023 157.48 cm 32 kg/m2 [address]99.[address] - [facility] 03/16/2023 08:35:34 Date Recorded Body height Body mass index (BMI) Body weight Provider Name and Address Organization Details Last Updated DateTime 11/28/2022 157.48 cm 32 kg/m2 [address]0497.[address] [facility], 11/28/2022 14:24:20 Social History None recorded. Functional [...] Code Diagnosis Note [id number] MD DICK Manuel [facility] [address] [place] [address] 11/28/2022 14:16:32 11/28/2022 14:34:58 Pain of right knee joint [id number] 07544 M25.561 [id number] MD DICK Sloan Segterra ([employer])[facility] [address] [place] [address] 03/16/2023 08:19:46 03/16/2023 08:47:14 History of right total knee replacement 1126886144 058492 Z96.651 History of left total knee replacement 3420068379 411427 Z96.652 Aftercare [id number] Z47. 1 Health Concerns Section Related Observation LastModified by Organization Detai ls LastModified Time None Recorded Concern Status LastModified by Organization Details LastModified Time None Recorded Advance Directives Directive None Recorded Payers Encounter Date Sequence Insurance Name Policy Number Policy Ball Covered Member ID Ball Member ID Guarantor Name 11/28/2022 1 [facility] [id number] 2 Shikha Vincent Hodgkins [id number] Shikha Farfan 03/16/2023 1 [id number] Shikha Vincent Hodgkins [id number] Shikha Farfan Notes Date Note Type Note Provider Name and Address Organization Details Recorded Time 11/28/2022 text/html The patient presents with complaints of mild intermittent discomfort in her right knee after undergoing right total knee replacement surgery on September 28, 2022. She denies any fevers or chills. She continues with her home exercise program. Lucian Bhakta MD [address] [place] [address], [address], [place] [facility] 11/28/2022 14:37:48 OBGyn Episode No OBEpisode recorded.
== END 2024-12-09 13:27 | disposition home or self-care (01) ==
PROVIDERS: PCP Internal Medicine; Visit Provider Orthopaedic Surgery
DX: M25.811 Other specified joint disorders, right shoulder (principal); M25.511 Pain in right shoulder
CPT/HCPCS: 20610; 99213

== ENCOUNTER → 2024-12-09 13:11 | Outpatient (BNVA) | payer OTHER, SELFPAY | PROVIDERS: PCP Internal Medicine; Visit Provider Orthopaedic Surgery | DX: M25.811 Other specified joint disorders, right shoulder (principal); M25.511 Pain in right shoulder | CPT/HCPCS: 20610; J1010; J2003 ==

== ENCOUNTER 2025-01-14 13:00 | Outpatient (AMB) | payer OTHER, SELFPAY ==
[2025-01-14 13:09] VITALS: BMI 34.8
--- NOTE | 2025-01-14 13:09 | MHC.OFFVIS ---
Vital Signs 01/14/25 13:09 Height 5 ft 1 in Weight 184 lb BMI 34.8 Intake Visit Reasons: INj-Left shoulder injection Intake Note: Shikha is a 74 year old female who presents with complaints of progressively worsening left shoulder pain. Patient was given a left shoulder injection on 09/03/24. She got fairly good relief from that injection initially. Her pain has returned. Most of the pain is along the lateral aspect of her left shoulder. She reports difficulty lifting her left hand above shoulder height. She has tried Tylenol, anti-inflammatory medicines and gabapentin which gave her mild relief. Allergies iron Allergy (Intermediate, Verified 01/14/25 13:11) Unknown Penicillins Allergy (Intermediate, Verified 01/14/25 13:11) Unknown Sulfa (Sulfonamide Antibiotics) Allergy (Intermediate, Verified 01/14/25 13:11) Itching Medication List - Last Reconciled 01/14/25 by Lucian Bhakta MD gabapentin 300 mg PO BEDTIME levocetirizine 5 mg PO DAILY losartan 50 mg PO DAILY magnesium oxide 400 mg PO DAILY meloxicam 7.5 mg PO DAILY trimethoprim 100 mg PO DAILY PFSH Surgical History (Updated 01/16/24 @ 08:54 by Pinky Lr CMA) Hx of right knee surgery (~09/29/22) Hx of left knee surgery (~06/2022) Hx of hysterectomy Social History (Updated 08/09/23 @ 09:57 by Marian Grant CMA) Household Members: Children Housing: Apartment Alcohol intake: never Patient Tobacco Use Status: Never used Tobacco Current occupational status: disabled Physical Exam Vital Signs: BMI result Body Mass Index 34.8 Const Other: Well-nourished well-developed very friendly female awake alert and oriented x3 in no acute distress Extrem Other: Left shoulder examination shows decreased range of motion when compared to her right shoulder, mild crepitus with range of motion, pain with range of motion, no instability Office Procedures AMB Joint Injection/Aspiration Joint Injection/Aspiration Primary Site: left shoulder Prep: site was prepped using aseptic technique Injected: 40 mg of, DepoMedrol and 1% plain lidocaine Procedure: The patient tolerated the procedure well Coding 94876 - Large joint Procedure code (CPT) selection complete Assessment & Plan Assessment & Plan (1) Arthritis of left shoulder region: Code(s): M19.012 - Primary osteoarthritis, left shoulder Category: Medical Plan Ms. Farfan presents with left shoulder pain due to glenohumeral joint arthritis. The risks and benefits of a left shoulder cortisone injection were discussed at length with the patient. The patient wished to proceed. She tolerated the injection well. She will continue with her home stretching program. She will contact me prior to her follow-up appointment in 3 months should any questions or concerns arise. Feel free to call me at any time should questions regarding her orthopedic management arise. I spent 20 minutes in reviewing the patient's records and imaging studies, seeing the patient and documenting in the medical record. Orders: Orders AMB Joint Injection/Aspiration Today M19.012 - Primary osteoarthritis, left shoulder Medications: New clindamycin HCl Take two caps (600 mg) one hour before any dental work 600 mg (2 x 300 mg) PO ONCE 10 caps 2RF Coding Level of Care Code Est Pt Level 3 (24062) Complex EM visit Add On G2211 Diagnoses Arthritis of left shoulder region M19.012 CPT Codes Coding - 29181 Large joint: 95864 - Large joint ([id number])
--- OUTSIDE RECORDS SUMMARY | 2025-01-14 13:37 | XMS_ITS | Clinical Summary ---
Author Organization [facility] Address [address] [place] [address] Care Team Providers Care Regulated Program Manager Name Role Phone Unknown Primary Care Provider [phone] Allergies Active Allergy Reactions Criticality Noted Date Comments Penicillins Anaphylaxis High 05/20/2022 Sulfa Antibiotics Itching Low 05/20/2022 Medications gabapentin (NEURONTIN) 300 MG capsule Take 300 mg by mouth 3 (three) times a day. Active irbesartan-hydr ochlorothiazide (AVALIDE) 300-12.5 MG per tablet Take 1 tablet by mouth daily. Active loratadine (CLARITIN) 10 MG tablet Take 10 mg by mouth daily. Active azithromycin (ZITHROMAX) 250 MG tabletIndicatio ns:Acute bacterial bronchitis Take 2 tabs PO on day one and one tabs on days 2-5 #6 6 tablet 05/20/2022 Active gabapentin (NEURONTIN) 300 MG capsule Take 300 mg by mouth. 04/09/2022 Active loratadine (CLARITIN) 10 MG tablet Take 10 mg by mouth Once before discharge. 03/11/2022 Active senna-docusate (SENNA-S) 8.6-50 MG Take 1 tablet by mouth 2 (two) times a day. 06/30/2022 Active irbesartan-hydr ochlorothiazide (AVALIDE) 300-12.5 MG per tablet Take 1 tablet by mouth. 03/13/2022 Active fluticasone-dannie anterol (BREO ELLIPTA) 100-25 MCG/ACT inhaler Inhale 1 [...] mouth daily. Active doxycycline (VIBRAMYCIN) 100 MG capsuleIndicati ons:Acute bacterial bronchitis Take 1 capsule (100 mg total) by mouth 2 (two) times a day. 14 capsule 05/13/2024 Active proMETHAZINE-de xtromethorphan (proMETHAZINE-D M) 6.25-15 MG/5ML syrupIndication s:Acute bacterial bronchitis Take 5 mL by mouth 4 times daily (every 6 hours) as needed for cough. 120 mL 05/13/2024 Active Active Problems No known active problems Social History Tobacco Use Types Packs/Day Years Used Date Smoking Tobacco: Never Smokeless Tobacco: Never Tobacco Cessation:Counseling Given: Not Answered Comments Unknown Sex and Gender Information Value Date Recorded Sex Assigned at Not on file Legal Sex Female 2:06 PM EST Gender Identity Not on file Sexual Orientation Not on file Last Filed Vital Signs Vital Sign Reading Time Taken Comments Blood Pressure 144/85 05/13/2024 1:04 PM EDT Pulse 98 05/13/2024 1:04 PM EDT Temperature 36.2 ??C (97.1 ??F) 05/13/2024 1:04 PM E DT Respiratory Rate 17 09/29/2023 11:31 AM EST [...] Bone Density (Females,Ages 65 and older) 2014 COVID-19 Vaccine (4 - 2023-2 5 season) 2024 07/11/2021, 12/21/2020, 11/29/2020 RSV Vaccine 60 years and older and Patients (1 - 1-dose 75+ series) 2024 Influenza Vaccine 03/27/2025 Hepatitis B Vaccines Aged Out No long er eligible based on patient's age to complete this topic Insurance [facility] MANAGED MEDICARE Care Teams Regulated Program Manager Relationship Specialty Start Date End Date Unknown Unknow Provider Address PCP - General 11/28/21
--- OUTSIDE RECORDS SUMMARY | 2025-01-14 13:37 | XMS_ITS | Encounter Summary ---
Author Organization [facility] Address [address] [place] [address] Care Team Providers Care Retail Assistant Store Manager Name Role Phone Unknown Primary Care Provider [phone] Encounter Details Date Type Department Care Team (Late st Contact Info) Description 09/27/2022 Telephone [facility] [address] [place] [address] Jenny Muller, PA [address] [facility] [address] [place] [address] Social History Tobacco Use Types Packs/Day Years Used Date Smoking Tobacco: Never Assessed Comments Unknown Sex and Gender Information Value [...] on filedocumented in this encounter Care Teams Retail Assistant Store Manager Relationship Specialty Start Date End Date Unknown Unknow Provider Address PCP - General 11/28/21 documented as of this encounter
--- OUTSIDE RECORDS SUMMARY | 2025-01-14 13:37 | XMS_ITS | Data Portability ---
Author Organization [place] [facility] Nettie Braxton [place] Address [address] [place] [address] Care Team Providers Care Vault Installer Name Role Phone NADIYA OLIVO Primary Care Provider Assessment Encounter Date Assessment Date Assessment LastModified [...] pain relief in the knee and satisfactory orthodoxy of function in terms of activities of [...] total knee arthroplasty. Continue knee conditioning exercises. Xlor-fut-eyhthf r medications as needed. Ultimate failure may [...] view 023 03/16/20 23 [email or web address] [facility], [address], [place], [address], 3 08:47:14 XR, knee, 1 or 2 view 023 03/16/20 23 [email or web address] [facility], [address], [place], [address], 3 08:47:14 Medication Orders None record ed. [...] Recorded Time Pain of right knee joint [id number] Active 2022 Lucian Bhakta MD [address] [facility] [address], [place], [address] [facility] [place] [facility], P 14:34:43 Problem Notes None recorded. Procedures Surgical History Date Name Laterality Status Provider Name and Address Organization Details Recorded Time Total knee arthroplasty completed Daylin Quinn [place] - [facility] 11/28/2022 14:24:50 Imaging Results None recorded. [...] Updated DateTime 03/16/2023 157.48 cm 32 kg/m2 [address]70.[address] [place] - [facility] 03/16/2023 08:35:34 Date Recorded Body height Body mass index (BMI) Body weight Provider Name and Address Organization Details Last Updated DateTime 11/28/2022 157.48 cm 32 kg/m2 [address]98.[address] [place] [facility] [place], 11/28/2022 14:24:20 Social History None recorded. Functional [...] Code Diagnosis Note 3594 MD DICK Manuel [facility] [address] [place] [address] 11/28/2022 14:16:32 11/28/2022 14:34:58 Pain of right knee joint [id number] 63633 M25.561 69517 MD DICK Sloan [facility] [address] [place] [address] 03/16/2023 08:19:46 03/16/2023 08:47:14 History of right total knee replacement 1497947715 301423 Z96.651 History of left total knee replacement 1671234509 278926 Z96.652 Aftercare 386542331 Z47. 1 Health Concerns Section Related Observation LastModified by Organization Detai ls LastModified Time None Recorded Concern Status LastModified by Organization Details LastModified Time None Recorded Advance Directives Directive None Recorded Payers Encounter Date Sequence Insurance Name Policy Number Policy Ball Covered Member ID Ball Member ID Guarantor Name 11/28/[address] [facility] [id number] 2 Shikha Vincent Hodgkins [id number] Shikha Farfan 03/16/2023 1 [id number] Shikha Vincent Hodgkins [id number] Shikha Farfan Notes Date Note Type Note Provider Name and Address Organization Details Recorded Time 11/28/2022 text/html The patient presents with complaints of mild intermittent discomfort in her right knee after undergoing right total knee replacement surgery on September 28, 2022. She denies any fevers or chills. She continues with her home exercise program. Lucian Bhakta MD [address] [place] [address], [address], [place] [facility] 11/28/2022 14:37:48 OBGyn Episode No OBEpisode recorded.
--- OUTSIDE RECORDS SUMMARY | 2025-01-14 13:37 | XMS_ITS | Clinical Summary ---
Author Organization [facility] Address [address] [place] [address] Care Team Providers Care Gas Leak Inspector Helper Name Role Phone Vincent Meza MD Primary Care Provider [phone] Allergies Active Allergy Reactions Criticality Noted Date [...] this topic Medical Devices Implanted Type Area Founder And President Device Identifier Shelf Expiration Date Model / Serial / Lot Cement Bone Surg Simplex Radiopq Stry-Howm 5489-2-862-114 092 - [id number] Implanted:Qty: 1 on 06/29/2022 by Lucian Bhakta [place] [facility] [place] Left: Knee [employer] [id number] 07/26/2023 6191-1-010 / / [id number] Cement Bone Surg Simplex Radiopq Stry-Howm 0998-6-469-114 092 - [id number] Implanted:Qty: 1 on 06/29/2022 by Lucian Bhakta [place] [facility] [place] [facility] Left: Knee [employer] [id number] 07/26/2023 6191-1-010 / / [id number] Knee Fem Triathlon Cr 3-Lt Stry-Howm 1514-N-394-542 199 - [id number] Implanted:Qty: 1 on 06/29/2022 by Lucian Bhakta [place] [facility] [place] [facility] Left: Knee [employer] [id number] 09/11/2026 5515-F-301 / / [id number] Knee Pat Symmetric X3 8x27mm Stry-Howm 6077-Q-321-288 021 - [id number] Implanted:Qty: 1 on 06/29/2022 by Lucian Bhakta MD [place] [facility] [place] [facility] Left: Knee [employer] [id number] 01/04/2027 5550-G-278 / / [id number] Knee Tib Insrt Ps-X3 [id number] Stry-Howm 4536-F-136-534 750 - [id number] Implanted:Qty: 1 on 06/29/2022 by Lucian Bhakta [place] [facility] Left: Knee [employer] [id number] 10/13/2026 5532-G-413 / / [id number] Knee Baseplt Tib Cmnt Sz4 Stry-Howm 0760-I-897-189 190 - [id number] Implanted:Qty: 1 on 06/29/2022 by Lucian Bhakta MD at [facility] Left: Knee [employer] [id number] 02/16/2027 5520-B-400 / / [id number] Peg Fix Femoral Distal Stry-Howm 0069-F-332-547 704 - [id number] Implanted:Qty: 1 on 06/29/2022 by Lucian Bhakta [place] [facility] Left: Knee [employer] [id number] 04/28/2027 5575-X-000 / / [id number] Knee Pat Symmetric X3 8x27mm Stry-Howm 2426-M-480-288 021 - [id number] Implanted:Qty: 1 on 09/28/2022 by Lucian Bhakta [place] [facility] [place] [facility] [employer] [id number] 01/05/2027 5550-G-278 / / [id number] Knee Baseplt Tib Cmnt Sz4 Stry-Howm 2910-K-264-189 190 - [id number] Implanted:Qty: 1 on 09/28/2022 by Lucian Bhakta MD at [facility] [employer] [facility] [id number] 08/01/2027 5520-B-400 / / [id number] Knee Tib Insrt Ps-X3 [id number] Stry-Howm 3032-C-599-534 750 - [id number] Implanted:Qty: 1 on 09/28/2022 by Lucian Bhakta MD at [facility] [employer] [id number] 09/21/2025 5532-G-413 / / [id number] Peg Fix Femoral Distal Stry-Howm 1776-I-066-547 704 - [id number] Implanted:Qty: 1 on 09/28/2022 by Lucian Bhakta MD at [facility] [id number] 06/17/2027 5575-X-000 / / [id number] Knee Fem Ps Cmnt #3 R Stry-Howm 3392-N-142-325 692 - [id number] Implanted:Qty: 1 on 09/28/2022 by Lucian Bhakta MD at [facility] [id number] 09/01/2027 5515-F-302 / / [id number] Cement Bone Surg Simplex Radiopq Stry-Howm 4958-0-011-114 092 - [id number] Implanted:Qty: 1 on 09/28/2022 by Lucian Bhakta MD at [facility] [id number] 03/26/2025 6191-1-010 / / [id number] Cement Bone Surg Simplex Radiopq Stry-Howm 3070-5-493-114 092 - [id number] Implanted:Qty: 1 on 09/28/2022 by Lucian Bhakta MD [place] [facility] [id number] 03/26/2025 6191-1-010 / / [id number] Insurance Payer Benefit Plan / Group Subscriber ID Effective Dates Phone Address [facility] [id number] 2021-Present [address] [address] [place] [address] [facility] Effective for all dates 1 [facility] [address] [place] [address] [facility] Advance Directives For more information, please contact: [phone] Latest Code Status on File Code Status [...] way: discussion with patient . Care Teams Gas Leak Inspector Helper Relationship Specialty Start Date End Date Vincent Meza MD [address] [place] [address] PCP - General Internal Medicine 04/03/22
--- OUTSIDE RECORDS SUMMARY | 2025-01-14 13:37 | XMS_ITS | Encounter Summary ---
Author Organization [facility] Address [address] [place] [address] Care Team Providers Care Formal Service Waiter Name Role Phone Unknown Primary Care Provider [phone] Encounter Details Date Type Department Care Team (Late st Contact Info) Description 08/29/2024 Scanned Document [address] [place] [address] Provider, Generic Social History Tobacco Use Types Packs/Day Years Used Date Smoking Tobacco: Never Smokeless Tobacco: Never Comments Unknown Sex and Gender Information Value Date Recorded Sex Assigned at Not on file Legal Sex Female 2:06 PM EST Gender Identity Not on file Sexual Orientation Not on file documented as of this encounter Plan of Treatment Not on file documented as of this encounter Visit Diagnoses Not on filedocumented in this encounter Care Teams Formal Service Waiter Relationship Specialty Start Date End Date Unknown Unknow Provider Address PCP - General 11/28/21 documented as of this encounter
--- OUTSIDE RECORDS SUMMARY | 2025-01-14 13:37 | XMS_ITS | Encounter Summary ---
Author Organization [facility] Address [address] [place] [address] Care Team Providers Care Manager Ct Name Role Phone Unknown Primary Care Provider [phone] Encounter Details Date Type Department Care Team (Late st Contact Info) Description 08/29/2024 Scanned Document [address] [place] [address] Provider, Generic Social History Tobacco Use [...] on filedocumented in this encounter Care Teams Manager Ct Relationship Specialty Start Date End Date Unknown Unknow Provider Address PCP - General 11/28/21 documented as of this encounter
--- OUTSIDE RECORDS SUMMARY | 2025-01-14 13:37 | XMS_ITS | Clinical Summary ---
Author Organization LL [address] [place] [address] [place] [address] Phone Care Team Providers Care Vegetable Buncher Name Role Phone Vincent Meza MD Primary Care Provider [phone] Allergies Active Allergy Reactions Criticality Noted Date [...] Description 11/21/2024 10:00 AM EDT [facility] [address] [facility] [address] [place] [phone] Linnea Braden ILD (interstitial lung disease) ([facility] V24, [facility] V28) 11/21/2024 9:30 AM EDT [facility] [address] [facility] [address] [place] [phone] Jesenia Reynolds MD ILD (interstitial lung disease) ([facility] V24, [facility] V28) (Primary Dx) from Last 3 Months Surgical History Surgery Date Site/Laterality Comments HYSTERECTOMY PROCEDURE: HISTORICAL HYSTERECTOMY APPENDECTOMY PROCEDURE: [place] APPENDECTOMY Medical History Medical History Date Comments [...] Care Team (Late st Contact Info) Description 03/09/2025 2:00 PM EDT Appointment [facility] Scan [address] [place] [phone] 06/15/2025 8:15 AM EDT Office Visit Pulmonolgy - [place] [address] [facility] [address] [place] [address] Jesenia Reynolds MD 175 [facility] [address] [place] [address] Health Maintenance Due Date Last Done Comments DTaP,Tdap,and Td Vaccines (1 - Tdap) 1969 Pneumococcal Vaccine: 50+ Years (1 of 2 - PCV) 1968 Zoster Vaccines (1 of 2) 1968 Colorectal Cancer Screening: Colonoscopy 08/05/2022 Depression Screening 08/05/2022 Falls Risk Assessment 08/05/2022 Hepatitis C Screening 08/05/2022 Osteoporosis Screening (Bone Density Screening) 08/05/2022 Social Influencers of Health Screening 08/05/2022 COVID-19 Vaccine ( season) 2024 07/11/2021, 12/21/2020, 11/29/2020 RSV Immunization Adult Patients (1 - 1-dose 75+ series) 2024 Influenza Vaccine (Season Ended) 2025 05/17/2023, 06/03/2022, 06/27/2021, Additional history exists Hypertension/CHF/CAD Annual BMP Blood [...] this topic Medical Devices Implanted Type Area Chemical Librarian Device Identifier Shelf Expiration Date Model / Serial / Lot Cement Bone Surg Simplex Radiopq Stry-Howm 8966-5-456-114 092 Implanted:Qty: 1 on 06/29/2022 by Lucian Bhakta MD Left: Knee [employer] [id number] 07/26/2023 6191-1-010 / / [id number] Cement Bone Surg Simplex Radiopq Stry-Howm 2053-2-173-114 092 Implanted:Qty: 1 on 06/29/2022 by Lucian Bhakta MD Left: Knee [employer] [id number] 07/26/2023 6191-1-010 / / [id number] Knee Fem Triathlon Cr 3-Lt Stry-Howm 3312-I-572-542 199 Implanted:Qty: 1 on 06/29/2022 by Lucian Bhakta MD Left: Knee [employer] [id number] 09/11/2026 5515-F-301 / / [id number] Knee Pat Symmetric X3 8x27mm Stry-Howm 3103-X-470-288 021 Implanted:Qty: 1 on 06/29/2022 by Lucian Bhakta MD Left: Knee [employer] [id number] 01/04/2027 5550-G-278 / / [id number] Knee Tib Insrt Ps-X3 [id number] Stry-Howm 7873-Q-299-534 750 Implanted:Qty: 1 on 06/29/2022 by Lucian Bhakta MD Left: Knee [employer] [id number] 10/13/2026 5532-G-413 / / [id number] Knee Baseplt Tib Cmnt Sz4 Stry-Howm 2012-O-334-189 190 Implanted:Qty: 1 on 06/29/2022 by Lucian Bhakta MD Left: Knee [employer] [id number] 02/16/2027 5520-B-400 / / [id number] Peg Fix Femoral Distal Stry-Howm 0955-N-037-547 704 Implanted:Qty: 1 on 06/29/2022 by Lucian Bhakta MD Left: Knee [employer] [id number] 04/28/2027 5575-X-000 / / [id number] Knee Pat Symmetric X3 8x27mm Stry-Howm 5801-G-433-288 021 Implanted:Qty: 1 on 09/28/2022 by Lucian Bhakta MD [employer] [id number] 01/05/2027 5550-G-278 / / [id number] Knee Baseplt Tib Cmnt Sz4 Stry-Howm 6268-O-978-189 190 Implanted:Qty: 1 on 09/28/2022 by Lucian Bhakta MD [employer] [id number] 08/01/2027 5520-B-400 / / [id number] Knee Tib Insrt Ps-X3 7p2q69mt Stry-Howm 6129-B-821-534 750 Implanted:Qty: 1 on 09/28/2022 by Lucian Bhakta MD [employer] [id number] 09/21/2025 5532-G-413 / / [id number] Peg Fix Femoral Distal Stry-Howm 3777-W-341-547 704 Implanted:Qty: 1 on 09/28/2022 by Lucian Bhakta MD [employer] [id number] 06/17/2027 5575-X-000 / / [id number] Knee Fem Ps Cmnt #3 R Stry-Howm 5995-E-681-568 692 Implanted:Qty: 1 on 09/28/2022 by Lucian Bhakta MD [employer] [id number] 09/01/2027 5515-F-302 / / [id number] Cement Bone Surg Simplex Radiopq Stry-Howm 7699-9-518-114 092 Implanted:Qty: 1 on 09/28/2022 by Lucian Bhakta MD [employer] [id number] 03/26/2025 6191-1-010 / / [id number] Cement Bone Surg Simplex Radiopq Stry-Howm 2321-1-909-114 092 Implanted:Qty: 1 on 09/28/2022 by Lucian Bhakta MD [employer] [id number] 03/26/2025 6191-1-010 / / [id number] Procedures Procedure Name Priority Date/Time Associated Diagnosis [...] LAB CHEMISTRY METHOD 09/09/2024 7:48 PM EST [facility] eGFR 69 >=60 mL/min/1. 73m2 LAB CHEMISTRY METHOD 09/09/2024 7:48 PM EST [facility] Comment:Calculation based on the??Chronic Kidney Disease Epidemiology Collaboration (CKD-EPI) equation refit??without adjustment for race. Blood Venous blood specimen / Unknown 09/09/2024 09/09/2024 5:46 PM EST Vicente MAX LAB BLOOD ORDERABLES Final Res ult [facility] [address] [place] [address], * (ABNORMAL) LDL cholesterol, direct (09/09/2024 12:00 AM EST) LDL Direct 121(H) <=100 mg/dL LAB CHEMISTRY METHOD 09/09/2024 8:10 PM EST [facility] Blood Venous blood specimen / Unknown 09/09/2024 09/09/2024 5:46 PM EST Vicente MAX LAB BLOOD ORDERABLES Final Res ult DEE [facility] [address] [place] [address], from Last 3 Months or Most Recently Relevant to Health Maintenance Insurance [facility] Care Teams Vegetable Buncher Relationship Specialty Start Date End Date Vincent Meza MD [address] [facility] [address] [place] [address] PCP - General Internal Medicine 01/13/19
--- OUTSIDE RECORDS SUMMARY | 2025-01-14 13:37 | XMS_ITS | Encounter Summary ---
Author Organization [facility] Address [address] [place] [address] Care Team Providers Care Planer Setup Operator Name Role Phone Vincent Meza MD Primary Care Provider [phone] Encounter Details Date Type Department Care Team (Latest Contact Info) Description 09/09/2024 Lab Requisition [facility] - Main Lab [address] [facility] [place] [address] Vicente Beltran PA [address] [facility] JON[address]AN [address] [place] [address] Mixed hyperlipidemia; Type 2 diabetes mellitus without [...] Upcoming Encounters Date Type Department Care Team ( Contact Info) Description 03/09/2025 2:00 PM EDT Appointment [facility] Scan [address] [place] [address] 06/15/2025 8:15 AM EDT Office Visit Pulmonolgy - [place] [address] [facility] [address] [place] [phone] Jesenia Reynolds MD [address] [place] [address] documented as of this encounter Procedures Procedure [...] Hold for add-ons. 09/09/2024 7:[address] [facility] Comment:Auto resulted. Blood Venous blood specimen / Unknown 09/09/2024 09/09/2024 5:46 PM EST us Vicente MAX LAB BLOOD ORDERABLES Final Res ult [facility] [address] [place] [address], [place] [phone] * (ABNORMAL) Urinalysis microscopic only (09/09/2024 12:00 AM EST) RBC, Urine 1.0 0 - 4 /HPF LAB URINALYSIS - AUTOMATED METHOD 09/09/2024 7:55 PM [facility] WBC, Urine 21.8(H) 0 [...] MAX LAB URINE ORDERABLES Final Res ult Performing Organization Address [facility]/ZIP Co de Phone Number [facility] [address] [place] [address], [place] [phone] * Magnesium (09/09/2024 12:00 AM EST) Pathologist [facility] Magnesium 2.2 1.9 - 2.6 mg/dL LAB CHEMISTRY METHOD 09/09/2024 7:48 PM [facility] Blood Venous blood specimen / Unknown 09/09/2024 09/09/2024 5:46 PM EST Vicente MAX LAB BLOOD ORDERABLES Final Res ult [facility] [address] [place] [address], [place] [phone] * Hemoglobin A1c (09/09/2024 12:00 AM EST) Pathologist [facility] Hemoglobin A1C 5.8 <6.5 % LAB CHEMISTRY METHOD 09/09/2024 9:[address] [facility] Mean Bld Glu Estim. 120 mg/dL LAB CHEMISTRY METHOD 09/09/2024 9:[address] [facility] Blood Venous blood specimen / Unknown 09/09/2024 09/09/2024 5:46 PM EST us Vicente MAX LAB BLOOD ORDERABLES Final Res ult [facility] [address] [place] [address], [place] [phone] * BUN (09/09/2024 12:00 AM EST) [facility] BUN 19 5 - 25 mg/dL LAB CHEMISTRY METHOD 09/09/2024 7:[address] [facility] Blood Venous blood specimen / Unknown 09/09/2024 09/09/2024 5:46 PM EST us Vicente MAX LAB BLOOD ORDERABLES Final Res ult [facility] [address] [place] [address], [place] [phone] * (ABNORMAL) LDL cholesterol, direct (09/09/2024 12:00 AM EST) Pathologist [facility] LDL Direct 121(H) <=100 mg/dL LAB CHEMISTRY METHOD 09/09/2024 8:[address] [facility] Blood Venous blood specimen / Unknown 09/09/2024 09/09/2024 5:46 PM EST Vicente MAX LAB BLOOD ORDERABLES Final Res ult [facility] [address] [place] [address], [place] [phone] * Creatinine (09/09/2024 12:00 AM EST) Creatinine 0.88 0.50 - 1.10 mg/dL LAB CHEMISTRY METHOD 09/09/2024 7:[address] [facility] eGFR 69 >=60 mL/min/1. 73m2 LAB CHEMISTRY METHOD 09/09/2024 7:[address] [facility] Comment:Calculation based on the??Chronic Kidney Disease Epidemiology Collaboration (CKD-EPI) equation refit??without adjustment for race. Blood Venous blood specimen / Unknown 09/09/2024 09/09/2024 5:46 PM EST Vicente MAX LAB BLOOD ORDERABLES Final Res ult Performing Organization Address City/[facility]/ZIP Co de Phone Number [facility] [address] [place] [address], [place] [phone] * Hepatic function panel (09/09/2024 12:00 AM EST) Total Protein 7.6 6.0 - 8.0 g/dL LAB CHEMISTRY METHOD 09/09/2024 8:[address] [facility] Albumin 4.3 3.2 - 5.0 g/dL LAB CHEMISTRY METHOD 09/09/2024 8:[address] [facility] Total Bilirubin 0.7 0.0 - 1.4 mg/dL LAB CHEMISTRY METHOD 09/09/2024 8:[address] [facility] Bilirubin, Direct 0.2 0.0 - 0.3 mg/dL LAB CHEMISTRY METHOD 09/09/2024 8:[address] [facility] Bilirubin, Indirect 0.5 0.0 - 1.1 mg/dL LAB CHEMISTRY METHOD 09/09/2024 8:10 PM [facility] ALT (SGPT) 23 10 [...] MAX LAB BLOOD ORDERABLES Final Res ult [facility] [address] [place] [address], [place] [phone] * (ABNORMAL) Lipid panel with reflex to [...] 4.4 LAB CHEMISTRY METHOD 09/09/2024 8:[address] [facility] Blood Venous blood specimen / Unknown 09/09/2024 09/09/2024 5:46 PM EST us Vicente MAX LAB BLOOD ORDERABLES Final Res ult Performing Organization Address City/[facility]/ZIP Co de Phone Number [facility] [address] [place] [address], [place] [phone] * Electrolyte panel (09/09/2024 12:00 AM EST) Sodium 136 133 - 145 mmol/L LAB CHEMISTRY METHOD 09/09/2024 8:10 PM [facility] Potassium 4.2 3.5 - 5.5 mmol/L LAB CHEMISTRY METHOD 09/09/2024 8:10 PM [facility] Chloride 104 96 - 110 mmol/L LAB CHEMISTRY METHOD 09/09/2024 8:10 PM [facility] CO2 24 21 - 32 mmol/L LAB CHEMISTRY METHOD 09/09/2024 8:10 PM [facility] Anion Gap 8 3 - 11 LAB CHEMISTRY METHOD 09/09/2024 8:10 PM [facility] Blood Venous blood specimen / Unknown 09/09/2024 09/09/2024 5:46 PM EST us Vicente MAX LAB BLOOD ORDERABLES Final Res ult [facility] [address] [place] [address], [place] [phone] documented in this encounter Visit Diagnoses Diagnosis Mixed hyperlipidemia Type 2 diabetes mellitus without complications (CMS/HCC V24, CMS/HCC V28) Cough, unspecified Unspecified abdominal pain Essential (primary) hypertension Unspecified essential hypertension Interstitial cystitis (chronic) without hematuria Other microscopic hematuria documented in this encounter Care Teams Planer Setup Operator Relationship Specialty Start Date End Date Vincent Meza MD [address] [place] [address] PCP - General Internal Medicine 01/13/19 documented as of this encounter
== END 2025-01-14 13:24 | disposition home or self-care (01) ==
LOC: HO.HOS 13:01
PROVIDERS: PCP Internal Medicine; Visit Provider Orthopaedic Surgery
DX: M19.012 Primary osteoarthritis, left shoulder (principal)
CPT/HCPCS: 20610; 99213

== ENCOUNTER → 2025-01-14 13:00 | Outpatient (BNVA) | payer OTHER, SELFPAY | PROVIDERS: PCP Internal Medicine; Visit Provider Orthopaedic Surgery | DX: M19.012 Primary osteoarthritis, left shoulder (principal) | CPT/HCPCS: 20610; J1010; J2003 ==